=== PATIENT | male | born 1945 | race Caucasian/White ===

== ENCOUNTER 2016-11-21 05:53 | Inpatient (IN) | payer OTHER ==
[2016-10-31 13:26] VITALS: BMI 29.0
--- NOTE | 2016-10-31 14:04 | PAT Medication Instructions ---
Service Date Oct 31, 2016. Current Home Medication List Albuterol Hfa (Ventolin Hfa), Unknown Dose INH PRN PRN for ASTHMA Aspirin (Aspirin Chewable), 81 MG PO QAM Aspirin (Aspirin), 500 MG PO HS PRN for Pain Metoprolol Succ (Toprol Xl) (Toprol-Xl), 25 MG PO QAM Rosuvastatin Calcium (Rosuvastatin Calcium), 1 TAB PO QAM Medication Instructions For Your Scheduled Surgery - Check with surgeon/meal miller for instructions: Aspirin (Aspirin Chewable), 81 MG PO QAM Aspirin (Aspirin), 500 MG PO HS PRN for Pain - Take the following medications the morning of surgery with a sip of water: Rosuvastatin Calcium (Rosuvastatin Calcium), 1 TAB PO QAM Metoprolol Succ (Toprol Xl) (Toprol-Xl), 25 MG PO QAM Albuterol Hfa (Ventolin Hfa), Unknown Dose INH PRN PRN for ASTHMA (bring with you to hospital morning of surgery) - Take the following medications as scheduled the night before surgery: Albuterol Hfa (Ventolin Hfa), Unknown Dose INH PRN PRN for ASTHMA If you have any questions please call us at [phone] (Dania Campbell PA-C) or [phone] or [phone]
[2016-10-31 14:40] LABS: BASO % 0.5 %; BASO ABS # 0.05 K/uL (0-0.2); COMPLETE YES; EOS % 4.4 %; HEMATOCRIT 47.2 % (42-52); IG% 0.1 %; LYMPH % 30.3 %; LYMPH ABS # 3.28 K/uL (1.2-3.4); MEAN CELL VOLUME 91.8 fL (80-100); MEAN CORPUSCULAR HEMOGLOBIN 30.7 pg (25-34); MEAN CORPUSCULAR HGB CONC 33.5 g/dl (32-36); MEAN PLATELET VOLUME 10.4 fL (7.4-10.4); MONO % 11.7 %; PLATELET COUNT 234 K/uL (130-400); RED BLOOD COUNT 5.14 M/uL (4.7-6.1); WHITE BLOOD COUNT 10.81 K/uL (4.8-10.8)
[2016-10-31 14:55] LABS: URINE APPEARANCE CLEAR (CLEAR); URINE BILIRUBIN NEG (NEG); URINE COLOR YELLOW; URINE NITRITE NEG (NEG); URINE PH 5.5 (4.5-7.5); UROBILINOGEN NEG (NEG)
[2016-10-31 15:01] LABS: BUN/CREATININE RATIO 15.9 (10-20); CALCIUM 8.9 mg/dl (8.5-10.1); CREATININE 0.79 mg/dl (0.60-1.40); POTASSIUM 4.2 mmol/L (3.5-5.1)
[2016-10-31 15:12] LABS: MANUAL MICROSCOPIC REQUIRED? NO; REVIEW REQ? NO
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
[2016-11-21] VITALS (13 sets, daily range): BP systolic 101–125; BP diastolic 55–75; PULSE 56–75; TEMP 36.3–37; O2SAT 95–98; Ht 165.1 cm; Wt 83.5 kg
[~2016-11-21] VITALS: Ht 165.1 cm; Wt 83.5 kg
[~2016-11-21 05:53] MED LIST: ASPCH81X PO; ASPI325T45 PO; METO25TA3 PO; ROSU20TA22 PO; VNTHFA/IN INH
[2016-11-21] MEDS ORDERED: CEFAZOLIN 2000 MG/60 ML D5W 60 ML IV SCH (06:00)
[2016-11-21] MEDS ORDERED: LACTATED RINGER'S 1000ML 1,000 ML IV SCH (06:00)
[2016-11-21] MEDS ORDERED: NTRGSL/4 UT (06:13)
[2016-11-21] MEDS ORDERED: ADVIN25/60 INH (06:14)
[2016-11-21] MEDS ORDERED: MIDAZOLAM HCL 1 MG/ML 2ML VIAL ONE (06:45)
[2016-11-21] MEDS ORDERED: FENTANYL CITRATE INJ 50 MCG/1 ML 2 ML VIAL ONE ×3 (06:45→08:01)
[2016-11-21] MEDS ORDERED: BACITRACIN 50000 UNIT VIAL ONE (07:04)
[2016-11-21] MEDS ORDERED: SODIUM CHLORIDE 0.9% PF 50 ML VIAL ONE (07:04)
--- NOTE | 2016-11-21 07:12 | History & Physical Bridge Note ---
H&P Re-Evaluation Bridge Note: I have examined the patient, reviewed the History & Physical and in the interval since the performance of the History & Physical I have noted the following changes of clinical significance: No changes noted
[2016-11-21] MEDS ORDERED: ONDANSETRON INJ 2 MG/ML 2 ML VIAL IV PRN ×2 (07:45→08:45)
[2016-11-21] MEDS ORDERED: HYDROmorphone INJ 2 MG/ML SYR/VIAL IV PRN (07:45)
[2016-11-21] MEDS ORDERED: ATROPINE SULFATE 0.1 MG/ML 5ML SYR IV PRN (07:45)
[2016-11-21] MEDS ORDERED: LABETALOL HCL IV 5 MG/ML 20ML IV PRN (07:45)
[2016-11-21] MEDS ORDERED: HYDROmorphone INJ 2 MG/ML SYR/VIAL ONE ×2 (07:52→09:14)
[2016-11-21] MEDS ORDERED: FLOSEAL HEMOSTATIC MATRIX 5ML TOP ONE (08:11)
[2016-11-21] MEDS ORDERED: ROCURONIUM BROMIDE 10 MG/ML 5 ML VIAL ONE (08:12)
[2016-11-21] MEDS ORDERED: ONDANSETRON INJ 2 MG/ML 2 ML VIAL ONE ×2 (08:12→11:40)
[2016-11-21] MEDS ORDERED: DEXAMETHASONE SOD INJ 4 MG/ML VIAL ONE (08:12)
[2016-11-21] MEDS ORDERED: LIDOCAINE HCL 2% 2 ML VIAL (20MG/ML) ONE (08:12)
[2016-11-21] MEDS ORDERED: PROPOFOL IV EMULSION 10 MG/ML 20 ML VIAL IV ONE (08:12)
--- NOTE | 2016-11-21 08:43 | [facility] Post Operative Brief Note ---
Immediate Operative Summary Operative Date Nov 21, 2016. Pre-Operative Diagnosis Spinal Stenosis Post-Operative Diagnosis same as pre-operative Procedure(s) Performed C3-C4 Anterior Cervical Discectomy and Fusion, Placement of Prosthetic Spacer/ Allograft Anterior Plate and Screw Fixation with use of Nikole Surgeon Dr. Dom Rutledge Wallboard Worker Surgeon(s) Bernie Li PA-C Estimated Blood Loss 10ml Findings stenosis Specimens none
[2016-11-21] MEDS ORDERED: DEXAMETHASONE INJ 8 MG in SYRINGE 0 ML IV PRN (08:45)
[2016-11-21] MEDS ORDERED: NITROGLYCERIN 0.4 MG SL PER TAB CHARGE UT PRN (08:45)
[2016-11-21] MEDS ORDERED: DO NOT ADMINISTER PNEUMOCOCCAL VACCINE PRN ×2 (08:45)
[2016-11-21] MEDS ORDERED: ACETAMINOPHEN IV 100 ML IV PRN (08:45)
[2016-11-21] MEDS ORDERED: NALOXONE HCL 0.4 MG/1 ML VIAL/CARP IV PRN (08:45)
[2016-11-21] MEDS ORDERED: FLUTICASONE/SALMETEROL 250/50 (ADVAIR) 14 PUFF/1 INHALER INH PRN (08:45)
[2016-11-21] MEDS ORDERED: MAGNESIUM HYDROXIDE SUSP 30 ML UDC PO PRN (08:45)
[2016-11-21] MEDS ORDERED: LORAZEPAM INJ 0.5 MG in SYRINGE 0.75 ML IV PRN (08:45)
[2016-11-21] MEDS ORDERED: RACEPINEPHRINE 2.25% NEBU SOLN 0.5 ML VIAL INH PRN (08:45)
[2016-11-21] MEDS ORDERED: DiphenhydrAMINE HCL 50 MG/ML VIAL IV PRN (08:45)
[2016-11-21] MEDS ORDERED: DO NOT ADMINISTER FLU VACCINE PRN ×3 (08:45)
[2016-11-21] MEDS ORDERED: LORAZEPAM 0.5 MG TAB PO PRN (08:45)
[2016-11-21] MEDS ORDERED: HYDROmorphone INJ 0.5 MG/0.5 ML SYR IV PRN (08:45)
[2016-11-21] MEDS ORDERED: METOPROLOL SUCC 25MG EXT REL TAB PO SCH (09:00)
[2016-11-21] MEDS: ROSUVASTATIN CALCIUM 20 MG TAB PO SCH (09:00)
[2016-11-21] MEDS ORDERED: DOCUSATE SODIUM 100 MG CAP PO SCH (09:00)
--- NOTE | 2016-11-21 09:10 | OPERATIVE REPORT ---
DATE OF OPERATION: 11/21/2016 PREOPERATIVE DIAGNOSES: Cervical spondylosis and myeloradiculopathy, C3-C4. POSTOPERATIVE DIAGNOSES: Same. PROCEDURES PERFORMED: 1. Anterior cervical diskectomy and bilateral foraminotomy, C3-C4. 2. Anterior cervical arthrodesis, C3-C4. 3. Placement of Globus PEEK cage 8 mm in height at C3-C4. 4. Placement Nikole bone grafting in the interbody spacer. SURGEON: Dr. Dom Rutledge. BILINGUAL OFFICE ASSISTANT: Bernie Altamirano PA-C. Due to the complex nature of the procedure, the entire surgery was performed with the bus assistant of Bernie Altamirano PA-C. The assistant research scientist, under direct supervision, was involved in the actual performance of all aspects of the surgical procedure including hemostasis, tissue retraction and incision, instrument management, patient positioning, and wound closure. ANESTHESIA: General. DISPOSITION: The patient awakened and taken to PACU in stable condition. HISTORY OF PATIENT'S PROBLEMS: A 73-year-old male who presents with above-mentioned diagnoses. After failing an extensive course of nonoperative care, he elected to undergo the above-mentioned procedures. Risks, benefits, pros, cons, and alternatives were outlined in detail preoperatively. DESCRIPTION OF PROCEDURE: The patient was met with preoperatively, the case discussed and all questions were addressed. At that point, the patient was taken back to the operative suite and after undergoing successful general intubation via department of anesthesia, he was placed in supine position on Joshua table with head in Ace director of head start. All bony prominences were well padded and the eyes were inspected to ensure there was no external pressure placed upon them. At this point, anterior cervical spine was prepped and draped in normal sterile fashion. With assistance of fluoroscopy, we identified the C3-C4 disk space and transverse incision was placed along the right anterior aspect of the cervical spine overlying this region. Sharp dissection with the assistance of bipolar electrocautery was performed down to and exposing anterior cervical spine at C3-C4. A self-retaining retractor was placed. I then performed a complete diskectomy of C3-C4 out to the uncovertebral joints bilaterally. This did include removal of all posterior annular fibers and longitudinal ligament for complete decompression. Endplates were then burred to subcortical bleeding bone and 8-mm PEEK Prevail cage filled with Nikole bone grafting tapped into position. This was then screwed into place with fluoroscopic guidance. The incision was then copiously irrigated and explored to ensure there was no damage to surrounding structures or remaining bleeding. A 10 round PAIGE drain inserted and then closed with 1-0 Vicryl in the fascia, 2-0 Vicryl subcutaneously, and 4-0 Monocryl for final skin closure. Steri-Strips and sterile dressing placed. The patient was awakened and taken to PACU in stable condition. I attest to the content of the Intraoperative Record and any orders documented therein. Any exceptio ns are noted below.
--- NOTE | 2016-11-21 09:26 | DIAGNOSTIC IMAGING REPORT ---
CERVICAL 2 OR 3 VIEWS CLINICAL HISTORY: C3-C4 ACDF COMPARISON STUDY: Cervical spine fluoroscopic images November 14, 2009. Fluoroscopy time: 7 seconds. FINDINGS: 2 fluoroscopic images demonstrate a C3-C4 anterior discectomy and fusion. A previous corpectomy and multilevel anterior cervical spine fusion is also noted. IMPRESSION: Findings consistent with a C3-C4 anterior discectomy and fusion. Electronically signed by: Rudolph Patton M.D. 11/21/2016 9:25 AM Dictated Date/Time: 11/21/2016 9:21 AM
--- NOTE | 2016-11-21 10:01 | Anesthesiology Progress Note ---
Anesthesia Post Op Note Date & Time Nov 21, 2016 at 10:00 Vital Signs Pain Intensity: 4 Vital Signs Past 12 Hours Date Time Temp Pulse Resp B/P Pulse Ox O2 Delivery O2 Flow Rate FiO2 11/21/16 09:50 60 12 131/75 94 Nasal Cannula 3 11/21/16 09:40 60 16 139/69 95 Nasal Cannula 3 11/21/16 09:30 79 16 148/77 94 Nasal Cannula 3 11/21/16 09:20 71 16 154/79 95 Nasal Cannula 3 11/21/16 09:10 77 16 161/90 93 Nasal Cannula 3 11/21/16 09:00 78 16 150/83 96 Mask 10 11/21/16 08:50 36 79 16 154/77 98 Mask 10 11/21/16 06:05 36.4 57 20 121/69 95 Room Air Notes Mental Status: alert / awake / arousable, participated in evaluation Pt Amnestic to Procedure: Yes Nausea / Vomiting: adequately controlled Pain: adequately controlled Airway Patency, RR, SpO2: stable & adequate BP & HR: stable & adequate Hydration State: stable & adequate Anesthetic Complications: no major complications apparent
[2016-11-21] MEDS ORDERED: NEOSTIGMINE METHYLSULFATE 1 MG/ML 10ML VIAL ONE (11:40)
[2016-11-21] MEDS ORDERED: GLYCOPYRROLATE INJ 0.2 MG/ML VIAL ONE (11:40)
[2016-11-21] MEDS: SODIUM CHLORIDE 0.9% 1000ML 1,000 ML IV SCH (16:15)
[2016-11-21] MEDS ORDERED: SCOPOLAMINE 1.5 MG TDSY TD SCH (17:00)
[2016-11-21] MEDS: DEXAMETHASONE INJ 6 MG in SYRINGE 0 ML IV SCH (18:05)
[2016-11-21] MEDS: CEFAZOLIN IV 2,000 MG in DEXTROSE 5% 50ML 50 ML IV SCH (18:05)
[2016-11-21] MEDS: OXYCODONE HCL IR 5 MG TAB (IMMEDIATE RELEASE) PO PRN ×2 (19:21→23:42)
[2016-11-21] MEDS: DOCUSATE SODIUM 100 MG CAP PO SCH (20:30)
[2016-11-21] MEDS: CHECK SCOPOLAMINE PATCH PLACEMENT SCH (23:42)
[2016-11-22] VITALS (20 sets, daily range): BP systolic 99–129; BP diastolic 56–75; PULSE 51–78; TEMP 36.5–37.1; O2SAT 91–95
[2016-11-22] MEDS: DEXAMETHASONE INJ 6 MG in SYRINGE 0 ML IV SCH ×2 (00:32→08:31)
[2016-11-22] MEDS: CEFAZOLIN IV 2,000 MG in DEXTROSE 5% 50ML 50 ML IV SCH ×2 (00:38→08:40)
[2016-11-22] MEDS: SODIUM CHLORIDE 0.9% 1000ML 1,000 ML IV SCH (04:52)
[2016-11-22] MEDS ORDERED: RXC5 PO (08:16)
--- NOTE | 2016-11-22 08:17 | Discharge Instructions ---
Discharge Instructions Date of Service Nov 22, 2016. Admission Reason for Admission: Spinal Stenosis Discharge Discharge Diagnosis / Problem: stenosis Discharge Goals Goal(s): Improve function Activity Recommendations Activity Limitations: per Instructions/Follow-up section . Instructions / Follow-Up Instructions / Follow-Up ACTIVITY RECOMMENDATIONS: SELF CARE INSTRUCTIONS AFTER CERVICAL FUSIONS 1. No smoking. Smoking drastically decreases the chance of a solid fusion. 2. No bending, lifting more than 5 pounds, or twisting (roll like a log when turning in bed). 3. You may shower 3 days after surgery. Thoroughly dry wound. Do not soak in the tub. 4. Cervical collar: Must be worn at all times including sleeping. You may remove the brace only to bath, eat and if you are sitting in a recliner. 5. Please walk as much as you can for exercise. Gradually increase the distance that you walk as your endurance increases. SPECIAL CARE INSTRUCTIONS: VERY IMPORTANT TO READ AND REVIEW A. Do not take any anti-inflammatory medications (i.e. Indocin, Advil, Aspirin, Naprosyn, Aleve, Motrin, etc.) as these may inhibit the chance of a solid fusion. Tylenol is okay to take. B. Your surgical incision has been closed with a cosmetic suture under the skin that will dissolve in about 6 weeks. In 14 days, you can use a pair of clean scissors and cut the suture that is left outside of the skin at the ends of your incision. C. Complications are uncommon, but please contact us if you have any signs or symptoms of: 1. wound infection (fever higher than 102.5 degrees F, redness, separation of wound, drainage, or increasing pain from the incision) 2. blood clots in legs (pain, swelling, redness and warmth in legs) 3. urinary tract infection (fever higher than 102.5 degrees, burning upon urination or increased frequency of urination) 4. nerve problems (inability to walk on your toes or heels, numbness, loss of bowel or bladder control) 5. any other symptoms that concern you. D. Please call the office at if you have any concerns or questions about your operation or recovery. MANAGING PAIN AFTER SPINAL SURGERY 1. Narcotic medication is intended for short-term use and will be provided for surgical pain. Surgical pain usually lasts for a period of 4-6 weeks. Narcotic medication includes Percocet, Vicodin, Darvocet, Tylenol #3 or Lortab. 2. Longer-term pain is more appropriately treated with non-narcotic medication such as Tylenol ES. 3. Muscle spasm is not appropriately treated with narcotics. Muscle relaxers such as Soma, Flexeril or Skelaxin can be used along with Tylenol ES. 4. Remember that we all live with some "aches and pains". This is not unusual or uncommon after an injury or as we get older. 5. We will provide appropriate medication within the normal guidelines of their prescribed use. We will also be very cautious and aware of potential abuse and extended duration of patients' medication needs. 6. Please allow 2-3 days to process refills. Prescriptions will not be mailed but must be picked up at the office. FOLLOW UP VISIT: Keep your scheduled follow-up appointment. Any questions, please call the office at . Current Hospital Diet Patient's current hospital diet: Regular Diet Discharge Diet Recommended Diet: Regular Diet Procedures Procedures Performed: C3-C4 Anterior Cervical Discectomy and Fusion, Placement of Prosthetic Spacer/ Allograft Anterior Plate and Screw Fixation with use of Nikole Pending Studies Studies pending at discharge: no Medical Emergencies . Who to Call and When: Medical Emergencies: If at any time you feel your situation is an emergency, please call 911 immediately. . Non-Emergent Contact Non-Emergency issues call your: Primary Care Provider . "Provider Documentation" section prepared by Dom Rutledge. VTE Core Measure Inpt VTE Proph given/why not?: Zeenat White, [facility]
--- NOTE | 2016-11-22 08:17 | Anesthesiology Progress Note ---
Anesthesia Post Op Note Date & Time Nov 22, 2016 at 08:17 Vital Signs Pain Intensity: 0.0 Vital Signs Past 12 Hours Date Time Temp Pulse Resp B/P Pulse Ox O2 Delivery O2 Flow Rate FiO2 11/22/16 07:55 52 14 91 Nasal Cannula 3.0 11/22/16 06:30 36.7 69 16 117/63 95 Nasal Cannula 3.0 Humidified Oxygen 11/22/16 04:30 36.8 75 16 119/75 94 Nasal Cannula 3.0 Humidified Oxygen 11/22/16 03:41 53 14 92 Nasal Cannula 3.0 11/22/16 02:30 36.7 53 16 106/66 94 Nasal Cannula 3.0 Humidified Oxygen 11/22/16 00:30 36.5 78 18 99/62 95 Nasal Cannula 3.0 Humidified Oxygen 11/21/16 23:46 63 14 96 Nasal Cannula 4.0 11/21/16 23:45 Nasal Cannula 3.0 Humidified Oxygen 11/21/16 23:24 36.6 59 14 116/67 96 Nasal Cannula 4.0 Humidified Air 11/21/16 22:32 36.7 56 18 101/65 96 Nasal Cannula 4.0 Humidified Oxygen 11/21/16 20:31 36.3 62 18 105/55 97 Nasal Cannula 4.0 62 Humidified Oxygen 11/21/16 20:27 71 14 96 Nasal Cannula 4.0 11/21/16 20:26 Nasal Cannula 4.0 Humidified Oxygen Notes Mental Status: alert / awake / arousable, participated in evaluation Pt Amnestic to Procedure: Yes Nausea / Vomiting: adequately controlled Pain: adequately controlled Airway Patency, RR, SpO2: stable & adequate BP & HR: stable & adequate Hydration State: stable & adequate Anesthetic Complications: no major complications apparent
[2016-11-22] MEDS: CHECK SCOPOLAMINE PATCH PLACEMENT SCH ×2 (08:31→15:16)
[2016-11-22] MEDS: DOCUSATE SODIUM 100 MG CAP PO SCH ×2 (08:32→20:58)
[2016-11-22] MEDS: ROSUVASTATIN CALCIUM 20 MG TAB PO SCH (08:32)
[2016-11-22] MEDS: METOPROLOL SUCC 25MG EXT REL TAB PO SCH (08:33)
--- NOTE | 2016-11-22 09:54 | DISCHARGE SUMMARY ---
PRINCIPAL DIAGNOSIS: Cervical spondylosis, myeloradiculopathy. HOSPITAL COURSE FOLLOWS: On 11/21/2016 patient underwent anterior cervical discectomy and fusion C3-C4, tolerated this well and taken to orthopedic floor postoperatively. Postop day #1 he was up and ambulatory, swallowing well, no hoarseness. Arm symptoms improved. Subsequently discharged home. Discharge orders and instructions found on the chart for further review.
[2016-11-22] MEDS ORDERED: NICOTINE 21 MG/24 HR TDSY TD ONE (14:51)
[2016-11-22] MEDS ORDERED: PHARMACIST DISCHARGE MED REC CONSULT PRN (15:00)
[2016-11-22 16:00] LABS: HEMATOCRIT 42.4 % (42-52); MEAN CELL VOLUME 92.6 fL (80-100); MEAN CORPUSCULAR HEMOGLOBIN 31.7 pg (25-34); MEAN CORPUSCULAR HGB CONC 34.2 g/dl (32-36); MEAN PLATELET VOLUME 11.1 fL (7.4-10.4); PLATELET COUNT 210 K/uL (130-400); RED BLOOD COUNT 4.58 M/uL (4.7-6.1); WHITE BLOOD COUNT 23.53 K/uL (4.8-10.8)
[2016-11-22] MEDS ORDERED: ASPIRIN 81 MG ECTAB PO ONE (16:00)
[2016-11-22 16:04] LABS: PROTHROMBIN TIME (PATIENT) 10.9 SECONDS (9.0-12.0)
[2016-11-22 16:46] LABS: BASO ABS # 0.01 K/uL (0-0.2); COMPLETE YES; IG% 0.3 %; LYMPH % 4.9 %; LYMPH ABS # 1.15 K/uL (1.2-3.4); MONO % 4.5 %; NEUT % 90.3 %
[2016-11-22 17:45] LABS: BUN/CREATININE RATIO 27.4 (10-20); CALCIUM 8.8 mg/dl (8.5-10.1); CREATININE 0.82 mg/dl (0.60-1.40); MAGNESIUM 2.2 mg/dl (1.8-2.4); POTASSIUM 4.3 mmol/L (3.5-5.1)
--- NOTE | 2016-11-22 23:09 | Medical Consult ---
Consultation Date of Consultation: Nov 22, 2016. Attending Physician: Dom Rutledge D.O. Reason for Consultation: Facial droop History of Present Illness This pt is a 71 yo male with a h/o hyperlipidemia, HTN, longtime smoker, and cervical spine stenosis, admitted for C3-4 anterior discectomy and fusion yesterday who was getting ready to be discharged today and his noted that he had a left-sided facial droop. The reports that the nurse in the PACU questioned her about it yesterday; the thinks it does look better today than yesterday but still not normal for him. I was consulted to further evaluate his condition. The patient denies any numbness or tingling or weakness anywhere. He denies visual changes except he did have a brief few seconds of black spots in his left field of vision about 3 or 4 days ago. He denies change in taste or difficulty with swallowing. He denies headache. He has some mild postoperative neck pain. He denies chest pains, palpitations, or shortness of breath. He otherwise feels fine. 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) Allergies Coded Allergies: No Known Allergies (Verified , 11/21/16) Home Medications Reported Home Medications Medications Dose Route/Sig Max Daily Dose Days Date Category Oxycodone HCl 5 Mg Tab 5-10 Mg PO Q4H PRN 30 11/22/16 Rx Advair Diskus 250/50 60 Dose (Fluticasone Prop/Salmeterol) 1 Ea Aerp 1 Puffs INH BID PRN 90 11/21/16 Reported Nitrostat (Nitroglycerin) 0.4 Mg Tab 0.4 Mg UT PRN 11/21/16 Reported Aspirin 325 Mg Tab 500 Mg PO HS PRN 10/31/16 Reported Toprol-Xl (Metoprolol Succinate) 25 Mg Tabcr 25 Mg PO QAM 10/31/16 Reported Rosuvastatin Calcium 20 Mg Tab 1 Tab PO QAM 10/31/16 Reported Ventolin Hfa (Albuterol) Unknown Strength Aers Unknown Dose INH PRN PRN 10/31/16 Reported Aspirin Chewable (Aspirin) 81 Mg Chew 81 Mg PO QAM 10/31/16 Reported Current Inpatient Medications Current Inpatient Medications Medications (Trade) Dose Ordered Sig/Octaviano Route Start Time Stop Time Status Last Admin Dose Admin Racepinephrine 0.5 ml 0.5 ml ONE PRN INH 11/21/16 08:45 Acetaminophen (Ofirmev Iv) 100 ml @ 400 mls/hr Q8H PRN IV 11/21/16 08:45 12/21/16 08:44 Hydromorphone HCl (Dilaudid Inj) 0.5mg IV for moder... Q3H PRN IV 11/21/16 08:45 12/05/16 08:44 Magnesium Hydroxide (Milk Of Magnesia Susp) 30 ml DAILY PRN PO 11/21/16 08:45 12/21/16 08:44 Ondansetron HCl (Zofran Inj) 4 mg Q6 PRN IV 11/21/16 08:45 12/21/16 08:44 Scopolamine (Transderm-Scop Patch) 1.5 mg Q3D TD 11/21/16 17:00 12/21/16 16:59 11/21/16 17:00 1.5 MG Lorazepam 0.5 mg 0.5 mg Q8H PRN PO 11/21/16 08:45 12/21/16 08:44 Lorazepam/Syringe (Ativan Inj/ Syringe) 1 ml @ 1 mls/min Q8H PRN IV 11/21/16 08:45 12/21/16 08:44 Diphenhydramine HCl (Benadryl Inj) 25 mg Q6H PRN IV 11/21/16 08:45 12/21/16 08:44 Pneumococcal Polysaccharide Vaccine 1 ea PRN PRN N/A 11/21/16 08:45 12/21/16 08:44 Influenza Virus Vacc Triv Types A&B 1 ea 1 ea PRN PRN N/A 11/21/16 08:45 12/21/16 08:44 Sodium Chloride (Nss 1000ml) 1,000 ml @ 80 mls/hr [id number] IV 11/21/16 16:15 11/22/16 16:14 11/22/16 04:52 80 MLS/HR Oxycodone HCl (Roxicodone Immediate Rel Tab) 5mg for pain scale 4-6 1... Q4H PRN PO 11/21/16 08:45 12/05/16 08:44 11/21/16 23:42 10 MG Polyethylene (Miralax Powder Packet) 17 gm DAILY PO 11/23/16 09:00 12/23/16 08:59 Bisacodyl (Dulcolax Tab) 5 mg DAILY PRN PO 11/23/16 06:00 12/23/16 05:59 Bisacodyl 10 mg 10 mg DAILY PRN CO 11/23/16 06:00 12/23/16 05:59 Dexamethasone Sodium Phosphate/ Syringe (Decadron Inj/ Syringe) 2 ml @ 1 mls/min ONE PRN IV 11/21/16 08:45 Naloxone HCl (Narcan Inj) 0.1 mg Q5M PRN IV 11/21/16 08:45 12/21/16 08:44 Miscellaneous (Remove Transderm-Scop Patch) 1 ea Q3D N/A 11/24/16 16:59 12/24/16 16:58 Miscellaneous Information (Check Scopolamine Patch Placement) 1 ea QS N/A 11/22/16 00:00 12/22/16 00:00 11/22/16 08:31 1 EA Salmeterol Xinafoate/ Fluticasone (Advair Diskus 250/50 Inh) 1 puff BID PRN INH 11/21/16 08:45 12/21/16 08:44 Nitroglycerin (Nitrostat Tab) 0.4 mg PRN PRN UT 11/21/16 08:45 12/21/16 08:44 Rosuvastatin Calcium (Crestor Tab) 20 mg QAM PO 11/21/16 09:00 12/21/16 08:59 11/22/16 08:32 20 MG Docusate Sodium (coLACE CAP) 100 mg BID PO 11/21/16 21:00 12/21/16 20:59 11/22/16 08:32 100 MG Metoprolol Succinate (Toprol Xl Tab) 25 mg QAM PO 11/22/16 09:00 12/22/16 08:59 11/22/16 08:33 25 MG Review of Systems Constitutional: No chills, No fatigue, No fever, No sweats Eyes: No diplopia, No eye pain, No worsening of vision ENT: No hearing loss, No trouble swallowing Respiratory: No shortness of breath Cardiovascular: No chest pain, No edema, No palpitations Abdomen: No nausea, No pain, No vomiting Musculoskeletal: No joint pain Genitourinary - Male: No problem reported Neurologic: No numbness/tingling, No paralysis, No vertigo, No weakness Psychiatric: No problem reported Endocrine: No problem reported Hematologic / Lymphatic: No problem reported Integumentary: No problem reported Allergic / Immunologic: No problem reported Physical Exam Date Time Temp Pulse Resp B/P Pulse Ox O2 Delivery O2 Flow Rate FiO2 11/22/16 13:14 37.1 66 14 92 Room Air 11/22/16 12:30 Room Air 11/22/16 12:30 37.1 66 14 129/67 92 Room Air 11/22/16 11:29 54 14 92 Room Air 11/22/16 11:00 95 Room Air 11/22/16 10:30 36.8 67 16 113/64 95 Nasal Cannula 3.0 Humidified Oxygen 11/22/16 08:30 36.9 68 16 108/63 94 Nasal Cannula 3.0 Humidified Oxygen 11/22/16 07:55 52 14 91 Nasal Cannula 3.0 11/22/16 06:30 36.7 69 16 117/63 95 Nasal Cannula 3.0 Humidified Oxygen 11/22/16 04:30 36.8 75 16 119/75 94 Nasal Cannula 3.0 Humidified Oxygen 11/22/16 03:41 53 14 92 Nasal Cannula 3.0 11/22/16 02:30 36.7 53 16 106/66 94 Nasal Cannula 3.0 Humidified Oxygen 11/22/16 00:30 36.5 78 18 99/62 95 Nasal Cannula 3.0 Humidified Oxygen 11/21/16 23:46 63 14 96 Nasal Cannula 4.0 11/21/16 23:45 Nasal Cannula 3.0 Humidified Oxygen 11/21/16 23:24 36.6 59 14 116/67 96 Nasal Cannula 4.0 Humidified Air 11/21/16 22:32 36.7 56 18 101/65 96 Nasal Cannula 4.0 Humidified Oxygen 11/21/16 20:31 36.3 62 18 105/55 97 Nasal Cannula 4.0 62 Humidified Oxygen 11/21/16 20:27 71 14 96 Nasal Cannula 4.0 11/21/16 20:26 Nasal Cannula 4.0 Humidified Oxygen 11/21/16 18:30 37.0 63 16 119/72 96 Nasal Cannula 4.0 Humidified Oxygen 11/21/16 18:25 36.7 64 18 116/65 96 Nasal Cannula 4.0 Humidified Oxygen 11/21/16 17:23 36.7 57 16 113/73 95 Nasal Cannula Humidified Oxygen 11/21/16 16:30 36.8 56 16 107/60 97 Nasal Cannula 4.0 Humidified Oxygen 11/21/16 16:30 75 14 97 Nasal Cannula 4.0 11/21/16 16:00 36.3 66 18 105/62 96 Nasal Cannula 4.0 Humidified Oxygen 11/21/16 16:00 36.3 66 18 105/62 96 Nasal Cannula 4.0 Humidified Oxygen 11/21/16 15:30 36.7 60 18 125/75 98 Nasal Cannula 4.0 Humidified Oxygen 11/21/16 15:25 98 Nasal Cannula 4.0 Humidified Oxygen 11/21/16 15:25 98 Nasal Cannula 4.0 11/21/16 15:15 36.9 57 18 108/60 93 Nasal Cannula 4 General Appearance: WD/WN, no apparent distress Head: normocephalic, atraumatic Eyes: normal inspection, PERRL, EOMI, sclerae normal ENT: hearing grossly normal, pharynx normal Neck: trachea midline, + pertinent finding (neck brace in place, after neck brace removed, dressing intact over anterior neck is clean dry and intact) Respiratory/Chest: lungs clear, normal breath sounds, no respiratory distress, no accessory muscle use Cardiovascular: no edema, no gallop, no JVD, no murmur, normal peripheral pulses, + bradycardia (with regular rhythm) Abdomen/GI: normal bowel sounds, non tender, soft, no organomegaly, no pulsatile mass ( ) Back: normal inspection Extremities/Musculoskelatal: normal inspection, no calf tenderness, no pedal edema Neurologic/Psych: public address announcer II-XII nml as tested (except there is notable drooping of the corner of the left side of the mouth, however no weakness in the rest of the facial muscles, tongue protrudes to the right on exam), no motor/sensory deficits, alert, normal mood/affect, normal reflexes (1+ throughout upper extremities and 2+ in bilateral lower extremities), oriented x 3, + pertinent finding (negative Romberg, normal rapid alternating hands, normal finger to nose bilaterally, normal [id number], normal gait, negative pronator drift) Skin: normal color, warm/dry, no rash Assessment & Plan This pt is a 71 yo male with a h/o hyperlipidemia, HTN, longtime smoker, COPD, and cervical spine stenosis, admitted for C3-4 anterior discectomy and fusion, with seemingly new onset left sided facial droop postoperatively. 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 He does have risk factors for CVA of smoking, hyperlipidemia, and hypertension. I discussed the case with neurology and cardiology on the phone. ECG is sinus bradycardia. Laboratory values today are normal including negative troponin, with the exception of a leukocytosis of 23,000 which is likely due to preoperative dexamethasone. -Transferred to telemetry for cardiac arrhythmia monitoring -Check echocardiogram - Trend cardiac biomarkers -Consult to neurology and cardiology are appreciated -Neuro checks -PT/OT/speech therapy evaluations -Check MRI of the brain as well as MRA of the head and neck -Restart his home aspirin 81 mg which I did discuss with Dr. Rutledge Hyperlipidemia, hypertension-stable at this time -Continue home metoprolol and Crestor -Continue aspirin 81 mg daily COPD-stable -Continue home Advair Current smoker-encouraged cessation of smoking -Nicotine patch as needed Cervical spine stenosis status post ACDF [id number] -Postoperative management as per primary orthopedic surgeon team DVT prophylaxis-SCDs Disposition to home after workup for CVA was completed and he is medically stable Additional Copies To Alex La M.D. (FORDS)
[2016-11-23 00:15] LABS: CKMB/CK RATIO 1.4 (0-3.0)
[2016-11-23] MEDS ORDERED: GADAVIST IV PRN (02:15)
[2016-11-23 03:13] VITALS: PULSE 54; O2SAT 92
[2016-11-23 04:00] VITALS: BP 116/62; PULSE 68; TEMP 36.8; O2SAT 96
[2016-11-23 04:24] VITALS: BP 116/62; PULSE 68; TEMP 36.8; O2SAT 96
[2016-11-23 04:50] LABS: BASO % 0.1 %; BASO ABS # 0.01 K/uL (0-0.2); COMPLETE YES; HEMATOCRIT 38.1 % (42-52); IG% 0.3 %; LYMPH % 10.9 %; LYMPH ABS # 1.91 K/uL (1.2-3.4); MEAN CELL VOLUME 90.5 fL (80-100); MEAN CORPUSCULAR HEMOGLOBIN 30.9 pg (25-34); MEAN CORPUSCULAR HGB CONC 34.1 g/dl (32-36); MEAN PLATELET VOLUME 10.2 fL (7.4-10.4); MONO % 7.9 %; NEUT % 80.8 %; PLATELET COUNT 190 K/uL (130-400); RED BLOOD COUNT 4.21 M/uL (4.7-6.1)
[2016-11-23 05:10] LABS: BLOOD UREA NITROGEN 19 mg/dl (7-18); BUN/CREATININE RATIO 20.8 (10-20); CALCIUM 8.5 mg/dl (8.5-10.1); CARBON DIOXIDE 30 mmol/L (21-32); CHLORIDE 109 mmol/L (98-107); CREATININE 0.93 mg/dl (0.60-1.40); GLUCOSE 112 mg/dl (70-99); POTASSIUM 3.8 mmol/L (3.5-5.1); SODIUM 145 mmol/L (136-145)
[2016-11-23 05:15] LABS: CHOLESTEROL 129 mg/dl (0-200); CHOLESTEROL/HDL RATIO 2.4; CKMB/CK RATIO 1.4 (0-3.0); HDL CHOLESTEROL 53 mg/dl; LDL CHOLESTEROL CALCULATED 54 mg/dl; TRIGLYCERIDES 109 mg/dl (0-150); VERY LOW DENSITY LIPOPROT CALC 22 mg/dl
[2016-11-23 05:52] LABS: ESTIMATED AVERAGE GLUCOSE 128 mg/dl; HA1C FLAG Normal (Normal)
[2016-11-23] MEDS ORDERED: BISACODYL 5 MG TABEC PO PRN (06:00)
[2016-11-23] MEDS ORDERED: BISACODYL 10 MG SUPP PR PRN (06:00)
--- NOTE | 2016-11-23 07:00 | DIAGNOSTIC IMAGING REPORT ---
Brain MRA HISTORY: Mental status change r/o dissection/stenosis TECHNIQUE: 3-D [id number] MRA of the brain was performed without contrast. COMPARISON STUDY: None. FINDINGS: Visualized intracranial internal carotid arteries, distal vertebral arteries, and basilar artery are widely patent. There is no significant stenosis, occlusion, or aneurysm seen within the bilateral ACAs, MCAs, or formula mixer. IMPRESSION: No significant stenosis, occlusion, or aneurysm within the [place]. Electronically signed by: Hua Hoyt M.D. 11/23/2016 6:59 AM Dictated Date/Time: 11/23/2016 6:58 AM
--- NOTE | 2016-11-23 07:01 | DIAGNOSTIC IMAGING REPORT ---
NECK MRA HISTORY: Mental status change r/o dissection/stenosis TECHNIQUE: [id number] and gadolinium-enhanced MRA of the neck was performed both before and after the intravenous administration of contrast. All measurements were calculated based on NASCET criteria. COMPARISON STUDY: None. FINDINGS: The aortic arch and proximal great vessels are widely patent. There is no significant stenosis, occlusion, or dissection identified within the bilateral common carotid, internal carotid, or vertebral arteries. IMPRESSION: No significant stenosis, occlusion, or dissection identified within the carotid or vertebral arteries. Electronically signed by: Hua Hoyt M.D. 11/23/2016 7:00 AM Dictated Date/Time: 11/23/2016 6:59 AM
--- NOTE | 2016-11-23 07:22 | DIAGNOSTIC IMAGING REPORT ---
MRI OF THE BRAIN COMBO CLINICAL HISTORY: Right facial droop. COMPARISON STUDY: No priors. TECHNIQUE: MRI of the brain was performed utilizing various T1 and T2-weighted sequences in the axial, sagittal, and coronal planes. Contrast-enhanced sequences were acquired following the administration of 8 cc of Gadavist. The examination is modestly degraded by motion artifact. FINDINGS: Brain parenchyma: There are age-related involutional changes noting minimal patchy subcortical and periventricular microangiopathic disease. There is no hemorrhage or mass effect. There is no restricted diffusion to suggest acute ischemia. No enhancing mass lesion is identified on the postcontrast images. Heath-white matter differentiation is preserved. No extra-axial fluid collection is seen. The cerebellar tonsils are normal in configuration. Ventricles, sulci, and cisterns: Prominent secondary to involutional change. Pituitary and sella: Unremarkable. Intracranial vasculature: Normal flow voids are maintained at the skull base. Orbits: The bony orbits are grossly intact. Orbital contents are normal in appearance. Sinuses and mastoids: Trace mucosal thickening is seen in the maxillary antra. The remaining paranasal sinuses and the mastoid air cells are clear. Calvarium: Unremarkable. Cervical cord: Partially visualized cervical spinal cord is normal in morphology and signal intensity. IMPRESSION: No acute intracranial abnormality. Electronically signed by: Yared Juares M.D. 11/23/2016 7:21 AM Dictated Date/Time: 11/23/2016 7:18 AM
[2016-11-23 07:25] VITALS: PULSE 56; O2SAT 94
[2016-11-23 08:00] VITALS: BP 117/68; PULSE 68; TEMP 36.8; O2SAT 96
[2016-11-23] MEDS: CHECK SCOPOLAMINE PATCH PLACEMENT SCH ×2 (08:00)
[2016-11-23 08:01] VITALS: BP 117/68; PULSE 68; TEMP 36.8; O2SAT 96
[2016-11-23] MEDS: DOCUSATE SODIUM 100 MG CAP PO SCH (08:55)
[2016-11-23] MEDS: ROSUVASTATIN CALCIUM 20 MG TAB PO SCH (08:55)
[2016-11-23] MEDS: METOPROLOL SUCC 25MG EXT REL TAB PO SCH (08:56)
[2016-11-23] MEDS ORDERED: NICOTINE 21 MG/24 HR TDSY TD SCH (09:00)
[2016-11-23] MEDS ORDERED: ASPIRIN 81 MG ECTAB PO SCH (09:00)
[2016-11-23] MEDS ORDERED: POLYETHYLENE (MIRALAX) 17 GM PACK PO SCH (09:00)
--- NOTE | 2016-11-23 09:26 | Medical Student: [facility] ---
Consultation Date of Consultation: Nov 23, 2016. History of Present Illness Rell Beyer is a 71 year old R-handed male with a history of cervical spinal stenosis, HTN, hyperlipidemia, COPD, and prostate cancer who had a C3/C4 anterior discectomy and fusion on 11/21/16. He was getting ready for discharge on 11/22 when his noticed drooping of his L lip. She is unsure if the drip started earlier as the pt was mostly sleeping the day of surgery. The pt is unaware of the droop and unsure when the drooping started. He denies any weakness, numbness, tingling, slurred speech, smell or taste changes, acute hearing changes, difficulty swallowing, balance problems, incontinence, or headache. He notes that he had some black floaters in his L eye 5-6 days ago, which went away after a few seconds. He has similar floaters periodically. He denies any blurred vision, double vision, or acute vision loss. His only complaint currently is mild neck pain from his surgery. Prior to the surgery he was experiencing localized posterior neck pain - no arm weakness or numbness. He had his first cervical fusion 7 years ago. He takes ASA 81 mg daily. Past Medical/Surgical History Medical History: HTN, hyperlipidemia, prostate cancer, cervical spinal stenosis, COPD. Pt denies any history of DM. Surgical History: prostatectomy, anterior cervical discectomy and fusion C3/C4 x 2, right tibia ORIF Family History Mother at age 62 from lung cancer Father in his early 70's from heart disease Pt denies any family history of stroke. 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) Review of Systems Constitutional: No fever Eyes: + see HPI ENT: No trouble swallowing Respiratory: No shortness of breath Cardiac: No chest pain, No palpitations Abdomen: + constipation, No nausea, No pain, No vomiting Musculoskeletal: + see HPI Neurologic: + see HPI All Other Systems: Reviewed and Negative Allergies Coded Allergies: No Known Allergies (Verified , 11/21/16) Medications Current Inpatient Medications Medications (Trade) Dose Ordered Sig/Octaviano Route Start Time Stop Time Status Last Admin Dose Admin Racepinephrine 0.5 ml 0.5 ml ONE PRN INH 11/21/16 08:45 Acetaminophen (Ofirmev Iv) 100 ml @ 400 mls/hr Q8H PRN IV 11/21/16 08:45 12/21/16 08:44 Hydromorphone HCl (Dilaudid Inj) 0.5mg IV for moder... Q3H PRN IV 11/21/16 08:45 12/05/16 08:44 Magnesium Hydroxide (Milk Of Magnesia Susp) 30 ml DAILY PRN PO 11/21/16 08:45 12/21/16 08:44 Ondansetron HCl (Zofran Inj) 4 mg Q6 PRN IV 11/21/16 08:45 12/21/16 08:44 Scopolamine (Transderm-Scop Patch) 1.5 mg Q3D TD 11/21/16 17:00 12/21/16 16:59 11/21/16 17:00 1.5 MG Lorazepam 0.5 mg 0.5 mg Q8H PRN PO 11/21/16 08:45 12/21/16 08:44 Lorazepam/Syringe (Ativan Inj/ Syringe) 1 ml @ 1 mls/min Q8H PRN IV 11/21/16 08:45 12/21/16 08:44 Diphenhydramine HCl (Benadryl Inj) 25 mg Q6H PRN IV 11/21/16 08:45 12/21/16 08:44 Pneumococcal Polysaccharide Vaccine 1 ea PRN PRN N/A 11/21/16 08:45 12/21/16 08:44 Influenza Virus Vacc Triv Types A&B 1 ea PRN PRN N/A 11/21/16 08:45 12/21/16 08:44 Oxycodone HCl (Roxicodone Immediate Rel Tab) 5mg for pain scale 4-6 1... Q4H PRN PO 11/21/16 08:45 12/05/16 08:44 11/21/16 23:42 10 MG Polyethylene (Miralax Powder Packet) 17 gm DAILY PO 11/23/16 09:00 12/23/16 08:59 Bisacodyl (Dulcolax Tab) 5 mg DAILY PRN PO 11/23/16 06:00 12/23/16 05:59 Bisacodyl 10 mg 10 mg DAILY PRN [place] 11/23/16 06:00 12/23/16 05:59 Dexamethasone Sodium Phosphate/ Syringe (Decadron Inj/ Syringe) 2 ml @ 1 mls/min ONE PRN IV 11/21/16 08:45 Naloxone HCl (Narcan Inj) 0.1 mg Q5M PRN IV 11/21/16 08:45 12/21/16 08:44 Miscellaneous (Remove Transderm-Scop Patch) 1 ea Q3D N/A 11/24/16 16:59 12/24/16 16:58 Miscellaneous Information (Check Scopolamine Patch Placement) 1 ea QS N/A 11/22/16 00:00 12/22/16 00:00 11/23/16 00:00 1 EA Salmeterol Xinafoate/ Fluticasone (Advair Diskus 250/50 Inh) 1 puff BID PRN INH 11/21/16 08:45 12/21/16 08:44 Nitroglycerin (Nitrostat Tab) 0.4 mg PRN PRN [place] 11/21/16 08:45 12/21/16 08:44 Rosuvastatin Calcium (Crestor Tab) 20 mg QAM PO 11/21/16 09:00 12/21/16 08:59 11/22/16 08:32 20 MG Docusate Sodium (coLACE CAP) 100 mg BID PO 11/21/16 21:00 12/21/16 20:59 11/22/16 20:58 100 MG Metoprolol Succinate (Toprol Xl Tab) 25 mg QAM PO 11/22/16 09:00 12/22/16 08:59 11/22/16 08:33 25 MG Nicotine (Nicoderm Cq 21MG Patch) 1 patch QAM TD 11/23/16 09:00 12/23/16 08:59 Miscellaneous (Remove Nicoderm Patch) 1 ea HS N/A 11/22/16 21:00 12/22/16 20:59 Miscellaneous Information (Pharmacist Discharge Med Rec Consult) 1 ea UD PRN N/A 11/22/16 15:00 12/22/16 14:59 Aspirin (Ecotrin Tab) 81 mg QAM PO 11/23/16 09:00 12/23/16 08:59 Gadobutrol (Gadavist) 8 mmol UD PRN IV 11/23/16 02:15 11/27/16 02:14 Physical Exam Date Time Temp Pulse Resp B/P Pulse Ox O2 Delivery O2 Flow Rate FiO2 11/23/16 08:01 36.8 68 18 117/68 96 11/23/16 07:25 56 14 94 Room Air 11/23/16 04:24 36.8 68 18 116/62 96 Room Air 3.0 11/23/16 04:00 Room Air 11/23/16 04:00 36.8 68 18 116/62 96 Room Air 11/23/16 03:13 54 14 92 Room Air 11/23/16 00:00 Room Air 11/22/16 23:10 53 14 94 Room Air 11/22/16 21:06 92 Room Air 11/22/16 21:00 51 16 93 Room Air 11/22/16 19:35 36.5 66 18 109/56 92 Room Air 11/22/16 19:18 60 14 93 Room Air 11/22/16 19:00 54 16 95 Room Air 11/22/16 17:00 55 18 92 Room Air 11/22/16 17:00 58 18 113/61 95 Room Air 11/22/16 15:24 36.7 62 18 123/63 93 Room Air 11/22/16 13:14 37.1 66 14 92 Room Air 11/22/16 12:30 Room Air 11/22/16 12:30 37.1 66 14 129/67 92 Room Air 11/22/16 11:29 54 14 92 Room Air 11/22/16 11:00 95 Room Air 11/22/16 10:30 36.8 67 16 113/64 95 Nasal Cannula 3.0 Humidified Oxygen General Appearance: WD/WN, no apparent distress Eyes: bilateral eyes EOMI, bilateral eyes PERRL, bilateral eyes normal inspection ENT: hearing grossly normal, pharynx normal, + pertinent finding (There is swelling of the lower L lip. ) Neck: + pertinent finding (Dressing in place over the anterior neck. ) Respiratory: no respiratory distress Musculoskeletal: normal strength (5/5 throughout), normal tone Neurologic/Psychiatric: alert, normal mood/affect, oriented x 3 Skin: normal color Neurologic exam: Spontaneous speech is of normal rate and tone and without dysarthria. Pt is able to repeat "No, ifs, ands, or buts" and "[place]." Recent and remote memory are intact, and fund of knowledge is appropriate. Strength of the intrinsic hand muscles, wrist extensors, wrist flexors, biceps, triceps, deltoids and trapezius muscles was 5 / 5 bilaterally, symmetrical. Strength of the hip flexors, quadriceps, hamstrings, ankle flexors, and ankle extensors 5 / 5 bilaterally, symmetrical. Triceps, biceps, and brachioradialis reflexes 2+ and symmetric. Patellar and Achilles reflexes 2+ and symmetric. Toe was down-going bilaterally on Babinski Reflex Testing. There was no dysmetria on [id number] testing. No tremor. There was no pronator drift. Romberg is negative. Pt is ambulatory with normal gait. Cranial nerves: I: Not tested II: PERRL with normal direct and consensual response. Visual major intact. III, IV, : EOMI. No nystagmus. V: Symmetric sensation over all 3 distributions of CN V. VII: Symmetrical wrinkling of the forehead, eye closure, and cheek expansion. There is drooping of the L lower lip at the area of the lip swelling, but the angle of the lips does elevate with smiling. VIII: Hearing symmetric. IX and X: uvula midline XI: trapezius and SCM strength is 5/5 and symmetric XII: tongue protrudes midline Laboratory Results Last 24 Hours Test 11/22/16 15:04 11/22/16 17:15 11/22/16 23:28 11/23/16 04:40 White Blood Count 23.53 K/uL 17.60 K/uL Red Blood Count 4.58 M/uL 4.21 M/uL Hemoglobin 14.5 g/dL 13.0 g/dL Hematocrit 42.4 % 38.1 % Mean Corpuscular Volume 92.6 fL 90.5 fL Mean Corpuscular Hemoglobin 31.7 pg 30.9 pg Mean Corpuscular Hemoglobin Concent 34.2 g/dl 34.1 g/dl Platelet Count 210 K/uL 190 K/uL Mean Platelet Volume 11.1 fL 10.2 fL Neutrophils (%) (Auto) 90.3 % 80.8 % Lymphocytes (%) (Auto) 4.9 % 10.9 % Monocytes (%) (Auto) 4.5 % 7.9 % Eosinophils (%) (Auto) 0.0 % 0.0 % Basophils (%) (Auto) 0.0 % 0.1 % Neutrophils # (Auto) 21.22 K/uL 14.24 K/uL Lymphocytes # (Auto) 1.15 K/uL 1.91 K/uL Monocytes # (Auto) 1.07 K/uL 1.39 K/uL Eosinophils # (Auto) 0.00 K/uL 0.00 K/uL Basophils # (Auto) 0.01 K/uL 0.01 K/uL RDW Standard Deviation 47.0 fL 45.9 fL RDW Coefficient of Variation 13.9 % 14.0 % Immature Granulocyte % (Auto) 0.3 % 0.3 % Immature Granulocyte # (Auto) 0.08 K/uL 0.05 K/uL Red Blood Cell Morphology Unremarkable Prothrombin Time 10.9 SECONDS Prothromb Time International Ratio 1.0 Activated Partial Thromboplast Time 26.3 SECONDS Partial Thromboplastin Ratio 1.0 Estimated Average Glucose 128 mg/dl Hemoglobin A1c 6.1 % Troponin I < 0.015 ng/ml < 0.015 ng/ml < 0.015 ng/ml Sodium Level 141 mmol/L 145 mmol/L Potassium Level 4.3 mmol/L 3.8 mmol/L Chloride Level 107 mmol/L 109 mmol/L Carbon Dioxide Level 28 mmol/L 30 mmol/L Anion Gap 6.0 mmol/L 6.0 mmol/L Blood Urea Nitrogen 23 mg/dl 19 mg/dl Creatinine 0.82 mg/dl 0.93 mg/dl Est Creatinine Clear Calc Drug Dose 81.7 ml/min 72.0 ml/min Estimated GFR () 103.8 96.1 Estimated GFR (Non- 89.6 82.9 BUN/Creatinine Ratio 27.4 20.8 Random Glucose 124 mg/dl 112 mg/dl Calcium Level 8.8 mg/dl 8.5 mg/dl Magnesium Level 2.2 mg/dl Total Creatine Kinase 249 U/L 217 U/L Creatine Kinase MB 3.4 ng/ml 3.1 ng/ml Creatine Kinase MB Ratio 1.4 1.4 Nucleated RBC Absolute Count (auto) 0.02 K/uL Nucleated Red Blood Cells % 0.1 % Triglycerides Level 109 mg/dl Cholesterol Level 129 mg/dl HDL Cholesterol 53 mg/dl LDL Cholesterol, Calculated 54 mg/dl VLDL Cholesterol, Calculated 22 mg/dl Cholesterol/HDL Ratio 2.4 NECK MRA HISTORY: Mental status change r/o dissection/stenosis TECHNIQUE: [id number] and gadolinium-enhanced MRA of the neck was performed both before and after the intravenous administration of contrast. All measurements were calculated based on NASCET criteria. COMPARISON STUDY: None. FINDINGS: The aortic arch and proximal great vessels are widely patent. There is no significant stenosis, occlusion, or dissection identified within the bilateral common carotid, internal carotid, or vertebral arteries. IMPRESSION: No significant stenosis, occlusion, or dissection identified within the carotid or vertebral arteries. Electronically signed by: Hua Hoyt M.D. 11/23/2016 7:00 AM Brain MRA HISTORY: Mental status change r/o dissection/stenosis TECHNIQUE: 3-D [id number] MRA of the brain was performed without contrast. COMPARISON STUDY: None. FINDINGS: Visualized intracranial internal carotid arteries, distal vertebral arteries, and basilar artery are widely patent. There is no significant stenosis, occlusion, or aneurysm seen within the bilateral ACAs, MCAs, or senior administrative support. IMPRESSION: No significant stenosis, occlusion, or aneurysm within the [place]. Electronically signed by: Hua Hoyt M.D. 11/23/2016 6:59 AM MRI OF THE BRAIN COMBO CLINICAL HISTORY: Right facial droop. COMPARISON STUDY: No priors. TECHNIQUE: MRI of the brain was performed utilizing various T1 and T2-weighted sequences in the axial, sagittal, and coronal planes. Contrast-enhanced sequences were acquired following the administration of 8 cc of Gadavist. The examination is modestly degraded by motion artifact. FINDINGS: Brain parenchyma: There are age-related involutional changes noting minimal patchy subcortical and periventricular microangiopathic disease. There is no hemorrhage or mass effect. There is no restricted diffusion to suggest acute ischemia. No enhancing mass lesion is identified on the postcontrast images. Heath-white matter differentiation is preserved. No extra-axial fluid collection is seen. The cerebellar tonsils are normal in configuration. Ventricles, sulci, and cisterns: Prominent secondary to involutional change. Pituitary and sella: Unremarkable. Intracranial vasculature: Normal flow voids are maintained at the skull base. Orbits: The bony orbits are grossly intact. Orbital contents are normal in appearance. Sinuses and mastoids: Trace mucosal thickening is seen in the maxillary antra. The remaining paranasal sinuses and the mastoid air cells are clear. Calvarium: Unremarkable. Cervical cord: Partially visualized cervical spinal cord is normal in morphology and signal intensity. IMPRESSION: No acute intracranial abnormality. Electronically signed by: Yared Juares M.D. 11/23/2016 7:21 AM Assessment & Plan ASSESSMENT: Rell Beyer is a 71 year old R-handed male with a history of cervical spinal stenosis, HTN, hyperlipidemia, COPD, and prostate cancer who had a C3/C4 anterior discectomy and fusion on 11/21/16 and was then noted to have possible drooping of his L lower face on 11/22/16. Neurologic exam shows swelling of the L lower lip and mild droop of the L lower lip, but no true facial droop as the angle of the mouth elevates. Brain MRI as well as head and neck MRA were obtained to evaluate for CVA, and all of these studies showed no acute abnormalities, making CVA unlikely. Lack of speech changes, hemiplegia, or hemianesthesia, also make CVA unlikely. History and physical exam are most consistent with localized lip trauma from intubation resulting in lip swelling and L lower lip droop. Cranial nerve V palsy (buccal vs mandibular branch) was also considered, but this is less likely given no involvement of the forehead along with the local lip trauma. Considered obtaining Lyme titer for further workup, but this is not indicated given the low likelihood of [place] palsy. Cervical spinal stenosis s/p C3/C4 discectomy and fusion on 11/21/16 with no radicular symptoms and no arm or leg weakness or numbness. Pt is noted to have leukocytosis of 17.6, which is trending down from yesterday. This is likely due to post-op steroids. He has been afebrile and has no other signs of infection. ECG showed sinus bradycardia with HR of 57, otherwise normal ECG. Troponin has been negative. Cardiology has seen the pt and reported no cardiac interventions needed at this time. PLAN: 1. Lip droop - There is no evidence of stroke at this time, but if the pt develops any new neurological symptoms such as weakness, numbness, slurred speech, or worsening facial droop, he should promptly return to the ED. Continue home ASA. No treatment needed for the lip swelling. 2. Follow up for cervical fusion and discectomy per orthopedics recommendations. 3. Continue home medications for HTN, hyperlipidemia, and COPD. 4. Discussed smoking cessation, and the pt says he is considering trying to stop.
--- NOTE | 2016-11-23 09:27 | Neurology Consultation ---
Neurology Consultation Date of Consultation: Nov 23, 2016. Attending Physician: Dom Rutledge D.O. Primary Care Physician: Alex La M.D. ([place]) Reason for Consultation: Patient is a 71-year-old, who was asked to see the request of Dr. Iniguez, for neurologic evaluation regarding facial droop question stroke. History of Present Illness Source: patient, caregiver, hospital records Patient has a history of chronic cervical spine pain. 7 years ago he underwent discectomy and fusion C4-C7 by Dr. Rutledge. He has been having continued neck pain and was admitted on November 20 because of severe cervical spinal stenosis at C3-4 with cord impingement. He was not having any pain, weakness, or numbness in the upper extremities and no balance issues, lower extremity problems, or incontinence of urine prior to surgery. On November 21 he underwent an anterior approach discectomy and foraminotomy with fusion and cage at C3-4. Immediately postoperatively there was a concern that there was a left facial droop. His noted that his left lower lip was sagging down. Yesterday, November 22 he was going to be discharged but again this facial droop was noted with the left lower lip. His felt that although was a little better than the he was still present on the . An MRI of the brain was obtained and showed no evidence of acute stroke. There are minimal ALT small vessel ischemic changes. MR angiography of the head and MR angiography of the neck were unremarkable. CBC and chem profile were largely unremarkable as well. This morning, the patient has no complaint of numbness or pain or soreness around his lips or tongue. His thinks that the sagging left lower lip is slightly better than before. He denies vision changes, headaches, speech or mentation problems, balance issues, new pain, weakness, or numbness in the limbs, or incontinence. Past Medical/Surgical History Hypertension Dyslipidemia Asthma COPD History of prostate cancer with prostatectomy roughly 10 years ago. History of cervical spondylosis and spinal stenosis post surgery 7 years ago and recent surgery 2 days ago. History of right tibial fracture in 2008 from falling on ice requiring surgery. Family History Mother, age 62 of lung cancer. She was a smoker. Father age 72 with heart condition. Social History Patient smokes one pack or more of cigarettes per day since age 14. He does not consume alcohol. 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 Smoking Status: Current every day smoker Smokeless Tobacco Use: No Alcohol Use: none Drug Use: none Marital Status: Housing Status: lives with family Occupation Status: employed ( truckdriver) Allergies Coded Allergies: No Known Allergies (Verified , 11/21/16) Current Inpatient Medications Current Inpatient Medications Medications (Trade) Dose Ordered Sig/Octaviano Route Start Time Stop Time Status Last Admin Dose Admin Racepinephrine 0.5 ml 0.5 ml ONE PRN INH 11/21/16 08:45 Acetaminophen (Ofirmev Iv) 100 ml @ 400 mls/hr Q8H PRN IV 11/21/16 08:45 12/21/16 08:44 Hydromorphone HCl (Dilaudid Inj) 0.5mg IV for moder... Q3H PRN IV 11/21/16 08:45 12/05/16 08:44 Magnesium Hydroxide (Milk Of Magnesia Susp) 30 ml DAILY PRN PO 11/21/16 08:45 12/21/16 08:44 Ondansetron HCl (Zofran Inj) 4 mg Q6 PRN IV 11/21/16 08:45 12/21/16 08:44 Scopolamine (Transderm-Scop Patch) 1.5 mg Q3D TD 11/21/16 17:00 12/21/16 16:59 11/21/16 17:00 1.5 MG Lorazepam 0.5 mg 0.5 mg Q8H PRN PO 11/21/16 08:45 12/21/16 08:44 Lorazepam/Syringe (Ativan Inj/ Syringe) 1 ml @ 1 mls/min Q8H PRN IV 11/21/16 08:45 12/21/16 08:44 Diphenhydramine HCl (Benadryl Inj) 25 mg Q6H PRN IV 11/21/16 08:45 12/21/16 08:44 Pneumococcal Polysaccharide Vaccine 1 ea PRN PRN N/A 11/21/16 08:45 12/21/16 08:44 Influenza Virus Vacc Triv Types A&B 1 ea PRN PRN N/A 11/21/16 08:45 12/21/16 08:44 Oxycodone HCl (Roxicodone Immediate Rel Tab) 5mg for pain scale 4-6 1... Q4H PRN PO 11/21/16 08:45 12/05/16 08:44 11/21/16 23:42 10 MG Polyethylene (Miralax Powder Packet) 17 gm DAILY PO 11/23/16 09:00 12/23/16 08:59 Bisacodyl (Dulcolax Tab) 5 mg DAILY PRN PO 11/23/16 06:00 12/23/16 05:59 Bisacodyl 10 mg 10 mg DAILY PRN CA 11/23/16 06:00 12/23/16 05:59 Dexamethasone Sodium Phosphate/ Syringe (Decadron Inj/ Syringe) 2 ml @ 1 mls/min ONE PRN IV 11/21/16 08:45 Naloxone HCl (Narcan Inj) 0.1 mg Q5M PRN IV 11/21/16 08:45 12/21/16 08:44 Miscellaneous (Remove Transderm-Scop Patch) 1 ea Q3D N/A 11/24/16 16:59 12/24/16 16:58 Miscellaneous Information (Check Scopolamine Patch Placement) 1 ea QS N/A 11/22/16 00:00 12/22/16 00:00 11/23/16 08:00 1 EA Salmeterol Xinafoate/ Fluticasone (Advair Diskus 250/50 Inh) 1 puff BID PRN INH 11/21/16 08:45 12/21/16 08:44 Nitroglycerin (Nitrostat Tab) 0.4 mg PRN PRN UT 11/21/16 08:45 12/21/16 08:44 Rosuvastatin Calcium (Crestor Tab) 20 mg QAM PO 11/21/16 09:00 12/21/16 08:59 11/22/16 08:32 20 MG Docusate Sodium (coLACE CAP) 100 mg BID PO 11/21/16 21:00 12/21/16 20:59 11/22/16 20:58 100 MG Metoprolol Succinate (Toprol Xl Tab) 25 mg QAM PO 11/22/16 09:00 12/22/16 08:59 11/22/16 08:33 25 MG Nicotine (Nicoderm Cq 21MG Patch) 1 patch QAM TD 11/23/16 09:00 12/23/16 08:59 Miscellaneous (Remove Nicoderm Patch) 1 ea HS N/A 11/22/16 21:00 12/22/16 20:59 Miscellaneous Information (Pharmacist Discharge Med Rec Consult) 1 ea UD PRN N/A 11/22/16 15:00 12/22/16 14:59 Aspirin (Ecotrin Tab) 81 mg QAM PO 11/23/16 09:00 12/23/16 08:59 Gadobutrol (Gadavist) 8 mmol UD PRN IV 11/23/16 02:15 11/27/16 02:14 Review of Systems Constitutional: No fatigue, No weakness Eyes: No diplopia, No worsening of vision ENT: No hearing loss, No tinnitus, No trouble swallowing Respiratory: No cough, No shortness of breath Cardiovascular: No chest pain, No palpitations Abdomen: No nausea, No pain Musculoskeletal: + joint pain, No muscle pain Genitourinary - Male: No dysuria, No urinary incontinence Neurologic: No balance problems, No memory loss, No numbness/tingling, No vertigo, No weakness Psychiatric: No anxiety, No depression symptoms Endocrine: No fatigue Hematologic / Lymphatic: No abnormal bleeding/bruising Integumentary: No rash Allergic / Immunologic: No hives Physical Exam Vital Signs (Past 24 Hrs): Date Time Temp Pulse Resp B/P Pulse Ox O2 Delivery O2 Flow Rate FiO2 11/23/16 08:01 36.8 68 18 117/68 96 11/23/16 07:25 56 14 94 Room Air 11/23/16 04:24 36.8 68 18 116/62 96 Room Air 3.0 11/23/16 04:00 Room Air 11/23/16 04:00 36.8 68 18 116/62 96 Room Air 11/23/16 03:13 54 14 92 Room Air 11/23/16 00:00 Room Air 11/22/16 23:10 53 14 94 Room Air 11/22/16 21:06 92 Room Air 11/22/16 21:00 51 16 93 Room Air 11/22/16 19:35 36.5 66 18 109/56 92 Room Air 11/22/16 19:18 60 14 93 Room Air 11/22/16 19:00 54 16 95 Room Air 11/22/16 17:00 55 18 92 Room Air 11/22/16 17:00 58 18 113/61 95 Room Air 11/22/16 15:24 36.7 62 18 123/63 93 Room Air 11/22/16 13:14 37.1 66 14 92 Room Air 11/22/16 12:30 Room Air 11/22/16 12:30 37.1 66 14 129/67 92 Room Air 11/22/16 11:29 54 14 92 Room Air 11/22/16 11:00 95 Room Air 11/22/16 10:30 36.8 67 16 113/64 95 Nasal Cannula 3.0 Humidified Oxygen Patient is right-handed. The patient is awake and alert. Speech is normal without aphasia or dysarthria. Mentation and thought processes are intact with orientation and normal fund of knowledge. Mood and affect are normal and appropriate. Appearance and grooming are normal. The discs are sharp with positive venous pulsations. There are no exudates, hemorrhages, or blood vessel changes seen. Pupils are 4mm bilaterally and reactive to light. Extraocular eye muscles are intact without nystagmus. Visual acuity and visual major seem normal grossly to confrontation. There are no deficits to sensation of the face bilaterally. Corneal reflexes are positive bilaterally. Facial strength is normal bilaterally and diffusely. He has a slightly swollen, slightly "purplish" left lower lip which sag sign. He can bring it up to her midline in the corners of his mouth move well with voluntary smile and there is no actual facial nerve weakness. He has no numbness or soreness around the face or lips. He has no other facial weakness or asymmetry. Hearing seems intact grossly to voice and finger rub. Palate moves well without asymmetry. There is normal sternocleidomastoid and trapezius strength bilaterally. Tongue is midline with good strength bilaterally. Neck is with full range of motion without discomfort. There are no cervical bruits. There are no cranial or ocular bruits. Heart is without murmur. Cervical, thoracic, and lumbar spine are nontender to palpation. The patient can tandem walk without difficulty. With outstretched arms there is no drift. There are no resting, postural, or action tremors. There is no ataxia with [id number] testing. There is good facility in the hands. There are no abnormal involuntary movements noted. Motor strength is 5/5 diffusely in the arms bilaterally including deltoids, biceps, brachioradialis, wrist flexors and extensors, undercollar maker, and intrinsic hand muscles. Motor strength is 5/5 diffusely in the legs bilaterally including hip flexors, quadriceps, hamstring, gastrocnemius, tibialis anterior, tibialis posterior, and peroneii muscles bilaterally. Toe extensors are normal and there is good bulk in the extensor digitorum brevis muscle bilaterally. The limbs have good tone without rigidity or spasticity, and there is no atrophy noted. Muscle bulk is normal, there is no tenderness, no myotonia noted to percussion, and no fasciculations seen. Sensory examination is intact to pin and touch throughout all four limbs. Reflexes are 1/4 in the biceps, triceps, brachioradialis, quadriceps, and Achilles tendons bilaterally. Toes are downgoing with plantar stimulation bilaterally. Peripheral pulses are present and of normal quality distally in all four limbs. There is no peripheral edema noted. Laboratory Results Past 24 Hours: 11/23/16 04:40 Red Blood Count 4.21, Mean Corpuscular Volume 90.5, Mean Corpuscular Hemoglobin 30.9, Mean Corpuscular Hemoglobin Concent 34.1, Mean Platelet Volume 10.2, Neutrophils (%) (Auto) 80.8, Lymphocytes (%) (Auto) 10.9, Monocytes (%) (Auto) 7.9, Eosinophils (%) (Auto) 0.0, Basophils (%) (Auto) 0.1, Neutrophils # (Auto) 14.24, Lymphocytes # (Auto) 1.91, Monocytes # (Auto) 1.39, Eosinophils # (Auto) 0.00, Basophils # (Auto) 0.01 11/23/16 04:40 Test 11/22/16 15:04 11/22/16 17:15 11/23/16 04:40 Red Blood Cell Morphology Unremarkable Prothrombin Time 10.9 SECONDS (9.0-12.0) Prothromb Time International Ratio 1.0 (0.9-1.1) Activated Partial Thromboplast Time 26.3 SECONDS (21.0-31.0) Partial Thromboplastin Ratio 1.0 Estimated Average Glucose 128 mg/dl Hemoglobin A1c 6.1 % (4.5-5.6) Magnesium Level 2.2 mg/dl (1.8-2.4) White Blood Count 17.60 K/uL (4.8-10.8) Red Blood Count 4.21 M/uL (4.7-6.1) Hemoglobin 13.0 g/dL (14.0-18.0) Hematocrit 38.1 % (42-52) Mean Corpuscular Volume 90.5 fL (80-100) Mean Corpuscular Hemoglobin 30.9 pg (25-34) Mean Corpuscular Hemoglobin Concent 34.1 g/dl (32-36) Platelet Count 190 K/uL (130-400) Mean Platelet Volume 10.2 fL (7.4-10.4) Neutrophils (%) (Auto) 80.8 % Lymphocytes (%) (Auto) 10.9 % Monocytes (%) (Auto) 7.9 % Eosinophils (%) (Auto) 0.0 % Basophils (%) (Auto) 0.1 % Neutrophils # (Auto) 14.24 K/uL (1.4-6.5) Lymphocytes # (Auto) 1.91 K/uL (1.2-3.4) Monocytes # (Auto) 1.39 K/uL (0.11-0.59) Eosinophils # (Auto) 0.00 K/uL (0-0.5) Basophils # (Auto) 0.01 K/uL (0-0.2) RDW Standard Deviation 45.9 fL (36.4-46.3) RDW Coefficient of Variation 14.0 % (11.5-14.5) Immature Granulocyte % (Auto) 0.3 % Immature Granulocyte # (Auto) 0.05 K/uL (0.00-0.02) Nucleated RBC Absolute Count (auto) 0.02 K/uL (0-0) Nucleated Red Blood Cells % 0.1 % Anion Gap 6.0 mmol/L (3-11) Est Creatinine Clear Calc Drug Dose 72.0 ml/min Estimated GFR () 96.1 Estimated GFR (Non- 82.9 BUN/Creatinine Ratio 20.8 (10-20) Calcium Level 8.5 mg/dl (8.5-10.1) Total Creatine Kinase 217 U/L (39-308) Creatine Kinase MB 3.1 ng/ml (0.5-3.6) Creatine Kinase MB Ratio 1.4 (0-3.0) Troponin I < 0.015 ng/ml (0-0.045) Triglycerides Level 109 mg/dl (0-150) Cholesterol Level 129 mg/dl (0-200) HDL Cholesterol 53 mg/dl LDL Cholesterol, Calculated 54 mg/dl VLDL Cholesterol, Calculated 22 mg/dl Cholesterol/HDL Ratio 2.4 Imaging MRI OF THE BRAIN COMBO CLINICAL HISTORY: Right facial droop. COMPARISON STUDY: No priors. TECHNIQUE: MRI of the brain was performed utilizing various T1 and T2-weighted sequences in the axial, sagittal, and coronal planes. Contrast-enhanced sequences were acquired following the administration of 8 cc of Gadavist. The examination is modestly degraded by motion artifact. FINDINGS: Brain parenchyma: There are age-related involutional changes noting minimal patchy subcortical and periventricular microangiopathic disease. There is no hemorrhage or mass effect. There is no restricted diffusion to suggest acute ischemia. No enhancing mass lesion is identified on the postcontrast images. Heath-white matter differentiation is preserved. No extra-axial fluid collection is seen. The cerebellar tonsils are normal in configuration. Ventricles, sulci, and cisterns: Prominent secondary to involutional change. Pituitary and sella: Unremarkable. Intracranial vasculature: Normal flow voids are maintained at the skull base. Orbits: The bony orbits are grossly intact. Orbital contents are normal in appearance. Sinuses and mastoids: Trace mucosal thickening is seen in the maxillary antra. The remaining paranasal sinuses and the mastoid air cells are clear. Calvarium: Unremarkable. Cervical cord: Partially visualized cervical spinal cord is normal in morphology and signal intensity. IMPRESSION: No acute intracranial abnormality. Electronically signed by: Yared Juares M.D. 11/23/2016 7:21 AM Impression 1. Left facial droop. This is actually a sagging of the left lower lip it looks a little swollen and discolored to me although it is not tender and on. The rest of his neuro exam shows no cranial nerve deficit and I don't think there is any actual facial nerve palsy or stroke. This looks like direct trauma to the lower lip on the left. MRI of the brain was unremarkable with no evidence of stroke. MR angiography of the head and neck were unremarkable with no significant stenoses. Despite the fact that he did not have a stroke, he does have increased risk factor for stroke, including hypertension and heavy cigarette smoking. 2. Significant cervical spinal stenosis post C3-4 discectomy and fusion November 21 He is doing well neurologically with this and has no focal or other neurologic deficits on examination. Plan 1. I see no need for additional neurologic testing or treatment of this patient at this time. I spoke to Dr. Rutledge, the patient, and his at bedside today regarding his case. Should he have any additional problems I could see him as an outpatient.
--- NOTE | 2016-11-23 09:47 | CARDIOLOGY CONSULTATION ---
DATE OF CONSULTATION: 11/23/2016 TIME: 08:59 a.m. CONSULTING PHYSICIAN: Dr. Iniguez. REASON FOR CONSULTATION: Left facial droop and possible stroke. HISTORY OF PRESENT ILLNESS: Mr. Beyer is a pleasant 71-year-old gentleman with a history significant for coronary artery disease, dyslipidemia, COPD and tobacco abuse. He was admitted on 11/21/2016 for a planned surgical procedure by Dr. Rutledge. He underwent a C3-C4 anterior cervical diskectomy and fusion with placement of a prosthetic spacer, allograft anterior plate and screw fixation. This surgical procedure followed a mechanical fall in July when he fell off of his truck and struck his head. He was found to have severe stenosis and impingement upon the cord at the C3-C4 level with severe bilateral neural foraminal stenosis of C3-C4. He states that the fall was mechanical. There was no syncope, chest pain or shortness of breath involved. He believes that he was on the lower rung of the steps and he was actually higher and when he stepped backwards, he fell to the ground. Immediately following the procedure, apparently a PACU nurse noted that his left lower face had a new droop to it. They notified his and apparently this was a new finding compared to preoperatively. He continues to have such facial droop on the left lower face. He believes it may actually be getting worse. He denies any numbness, pain or weakness in any of his extremities or other areas of his body. He denies any numbness or pain on the left lower face. There is a noticeable left facial droop compared to his baseline. He denies chest pain. He has chronic dyspnea with exertion, which he believes as stable. He denies orthopnea, syncope, near syncope, palpitations, edema, fevers, chills, abdominal pain, nausea, vomiting, or rash. REVIEW OF SYSTEMS: As above and otherwise review of systems are unremarkable. PAST MEDICAL HISTORY: 1. Coronary artery disease, established on 09/17/2007 cardiac catheterization demonstrating a mid RCA 50% stenosis and a dominant vessel. 2. Chronic obstructive pulmonary disease with PFTs on 03/20/2011 demonstrating mild obstructive ventilatory impairment. 3. Dyslipidemia. 4. Tobacco abuse. 5. Spine surgery several years ago and then once again during this hospitalization. HOME MEDICATIONS: Include aspirin 81 mg daily, metoprolol succinate 25 mg daily, Crestor 20 mg daily, Advair Diskus 1 puff twice daily, and Ventolin as needed. INPATIENT MEDICATIONS: Include aspirin 81 mg daily, dexamethasone, metoprolol succinate 25 mg daily, oxycodone, Crestor 20 mg daily, scopolamine patch 1.5 mg every 3 days, and Advair Diskus 1 puff b.i.d. p.r.n. ALLERGIES: No known drug allergies. FAMILY HISTORY: Father diagnosed with CAD in his late 60s. Mother from lung cancer. He has 3 siblings. SOCIAL HISTORY: He smokes cigarettes and has smoked up to 1-2 packs per day since age of 14. No alcohol or drugs. He is . Two grown children. 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 He is alone in the hospital room. PHYSICAL EXAMINATION: VITAL SIGNS: Temperature 36.8 degrees, heart rate 68 beats per minute, respiratory rate 18, blood pressure 117/68 mmHg, and oxygen saturation is 96% on room air. Blood pressure was mildly elevated for a short period of time on 11/21/2016, but otherwise has been well controlled. I's and O's positive 1.2 liters yesterday. Weight is 83.5 kg. GENERAL: No acute distress. He is alert and oriented. HEENT: Anicteric sclerae. NEUROLOGIC: He does have a noticeable left-sided facial droop on the left lower face. He is able to move all 4 extremities. A full neuro exam was not completed. Neurology is following. NECK: No carotid bruits noted. There is a surgical dressing in place. Normal carotid upstrokes bilaterally. No appreciable JVD. CARDIAC EXAM: No ventricular heaves. Regular, normal S1 and S2. No audible murmurs, rubs or gallops. LUNGS: Decreased breath sounds throughout, otherwise clear. ABDOMEN: Soft, nontender, and nondistended. Normoactive bowel sounds. No bruits noted. EXTREMITIES: No cyanosis or edema. 2+ radial pulses bilaterally. 2+ dorsalis pedis pulses bilaterally. No palpable cords. PSYCHIATRIC: Affect appears appropriate. LABORATORY DATA: White blood cell count is 17.6, hemoglobin 13, and platelets 190. Sodium 145, potassium 3.8, BUN 19, creatinine 0.93, and glucose 112. Troponin undetectable x3. LDL 54, HDL 53, and triglycerides 109. INR is 1. Brain MRI report reviewed. No acute intracranial abnormality reported by radiology. Neck MRA report reviewed. No significant stenosis, occlusion or dissection identified within the carotid or vertebral arteries as per radiology. Head MRA report reviewed. No significant stenosis, occlusion, or aneurysm within the [place]. ECG personally reviewed from 11/22/2016 at 15:10 p.m., sinus bradycardia at 57 beats per minute. Otherwise, normal ECG. Most recent ischemic evaluation was a stress echo on 03/19/2016. Report reviewed. Negative for ischemia at 87% MPHR. Negative ECG. No chest pain. Hypertensive response. EF 55%-60%. Normal wall motion and normal systolic function. Mild LVH. Type 1 diastolic dysfunction. No significant valvular abnormalities. Telemetry personally reviewed. No arrhythmias. Sinus with occasional ectopy. ASSESSMENT AND PLAN: 1. Left facial droop: Etiology uncertain. No acute stroke noted by radiology. Neurology consultation is pending. Case has been discussed with Dr. Adame, who plans on seeing the patient later today. There is no identifiable cardiac etiology to explain his symptoms. Likely neurologic. Perhaps, this is a peripheral nerve issue, but would defer to Dr. Adame of neurology. 2. Coronary artery disease: No angina. He has had negative ischemic evaluation within the past year. He had nonobstructive disease noted in 2007 cardiac catheterization. Continue aspirin 81 mg daily, high intensity statin therapy, and low dose beta esmer. 3. Dyslipidemia: Lipids were reviewed. Lipids are excellent. Continue high intensity statin therapy. 4. Tobacco abuse: He stopped smoking. 5. Disposition: The patient's care has been discussed with Dr. Adame of neurology. Dr. Iniguez of hospitalist service will also be contacted this morning to discuss cardiology recommendations. Cardiology will officially sign off at this time. Please call for any further questions or concerns. Thank for allowing me to participate in the care of Mr. Beyer. Sincerely,
--- NOTE | 2016-11-23 10:49 | Progress Note ---
Subjective Date of Service: Nov 23, 2016. Subjective Pt evaluation today including: conversation w/ patient, conversation w/ family (), physical exam, chart review, lab review, review of inpatient medication list Pt seen and examined Left lip droop still noticeable Denies any other facial weakness, numbness, swallowing or speech difficulties Review of Systems Constitutional: No chills, No fever Eyes: No eye pain, No worsening of vision ENT: + sore throat, No hearing loss, No nasal symptoms Respiratory: No cough, No dyspnea on exertion, No shortness of breath, No sputum Cardiac: No chest pain, No orthopnea Abdomen: No constipation, No diarrhea, No nausea, No pain, No vomiting Musculoskeletal: No joint pain, No muscle pain Male : No dysuria, No urinary frequency Objective Vital Signs Date Time Temp Pulse Resp B/P Pulse Ox O2 Delivery O2 Flow Rate FiO2 11/23/16 08:01 36.8 68 18 117/68 96 11/23/16 08:00 36.8 68 18 117/68 96 Room Air 3.0 11/23/16 08:00 Room Air 11/23/16 07:25 56 14 94 Room Air 11/23/16 04:24 36.8 68 18 116/62 96 Room Air 3.0 11/23/16 04:00 Room Air 11/23/16 04:00 36.8 68 18 116/62 96 Room Air 11/23/16 03:13 54 14 92 Room Air 11/23/16 00:00 Room Air 11/22/16 23:10 53 14 94 Room Air 11/22/16 21:06 92 Room Air 11/22/16 21:00 51 16 93 Room Air 11/22/16 19:35 36.5 66 18 109/56 92 Room Air 11/22/16 19:18 60 14 93 Room Air 11/22/16 19:00 54 16 95 Room Air 11/22/16 17:00 55 18 92 Room Air 11/22/16 17:00 58 18 113/61 95 Room Air 11/22/16 15:24 36.7 62 18 123/63 93 Room Air 11/22/16 13:14 37.1 66 14 92 Room Air 11/22/16 12:30 Room Air 11/22/16 12:30 37.1 66 14 129/67 92 Room Air 11/22/16 11:29 54 14 92 Room Air 11/22/16 11:00 95 Room Air Physical Exam General Appearance: WD/WN, no apparent distress Neck: supple, no adenopathy Respiratory/Chest: lungs clear, normal breath sounds Cardiovascular: no edema, no gallop Abdomen: non tender, soft Neurologic/Psychiatric: no motor/sensory deficits, alert, oriented x 3 Laboratory Results Last 24 Hours Test 11/22/16 15:04 11/22/16 17:15 11/22/16 23:28 11/23/16 04:40 White Blood Count 23.53 K/uL 17.60 K/uL Red Blood Count 4.58 M/uL 4.21 M/uL Hemoglobin 14.5 g/dL 13.0 g/dL Hematocrit 42.4 % 38.1 % Mean Corpuscular Volume 92.6 fL 90.5 fL Mean Corpuscular Hemoglobin 31.7 pg 30.9 pg Mean Corpuscular Hemoglobin Concent 34.2 g/dl 34.1 g/dl Platelet Count 210 K/uL 190 K/uL Mean Platelet Volume 11.1 fL 10.2 fL Neutrophils (%) (Auto) 90.3 % 80.8 % Lymphocytes (%) (Auto) 4.9 % 10.9 % Monocytes (%) (Auto) 4.5 % 7.9 % Eosinophils (%) (Auto) 0.0 % 0.0 % Basophils (%) (Auto) 0.0 % 0.1 % Neutrophils # (Auto) 21.22 K/uL 14.24 K/uL Lymphocytes # (Auto) 1.15 K/uL 1.91 K/uL Monocytes # (Auto) 1.07 K/uL 1.39 K/uL Eosinophils # (Auto) 0.00 K/uL 0.00 K/uL Basophils # (Auto) 0.01 K/uL 0.01 K/uL RDW Standard Deviation 47.0 fL 45.9 fL RDW Coefficient of Variation 13.9 % 14.0 % Immature Granulocyte % (Auto) 0.3 % 0.3 % Immature Granulocyte # (Auto) 0.08 K/uL 0.05 K/uL Red Blood Cell Morphology Unremarkable Prothrombin Time 10.9 SECONDS Prothromb Time International Ratio 1.0 Activated Partial Thromboplast Time 26.3 SECONDS Partial Thromboplastin Ratio 1.0 Estimated Average Glucose 128 mg/dl Hemoglobin A1c 6.1 % Troponin I < 0.015 ng/ml < 0.015 ng/ml < 0.015 ng/ml Sodium Level 141 mmol/L 145 mmol/L Potassium Level 4.3 mmol/L 3.8 mmol/L Chloride Level 107 mmol/L 109 mmol/L Carbon Dioxide Level 28 mmol/L 30 mmol/L Anion Gap 6.0 mmol/L 6.0 mmol/L Blood Urea Nitrogen 23 mg/dl 19 mg/dl Creatinine 0.82 mg/dl 0.93 mg/dl Est Creatinine Clear Calc Drug Dose 81.7 ml/min 72.0 ml/min Estimated GFR () 103.8 96.1 Estimated GFR (Non- 89.6 82.9 BUN/Creatinine Ratio 27.4 20.8 Random Glucose 124 mg/dl 112 mg/dl Calcium Level 8.8 mg/dl 8.5 mg/dl Magnesium Level 2.2 mg/dl Total Creatine Kinase 249 U/L 217 U/L Creatine Kinase MB 3.4 ng/ml 3.1 ng/ml Creatine Kinase MB Ratio 1.4 1.4 Nucleated RBC Absolute Count (auto) 0.02 K/uL Nucleated Red Blood Cells % 0.1 % Triglycerides Level 109 mg/dl Cholesterol Level 129 mg/dl HDL Cholesterol 53 mg/dl LDL Cholesterol, Calculated 54 mg/dl VLDL Cholesterol, Calculated 22 mg/dl Cholesterol/HDL Ratio 2.4 Assessment and Plan This pt is a 71 yo male with a h/o hyperlipidemia, HTN, longtime smoker, COPD, and cervical spine stenosis, admitted for C3-4 anterior discectomy and fusion, with seemingly new onset left sided facial droop postoperatively. 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 He does have risk factors for CVA of smoking, hyperlipidemia, and hypertension. Case was discussed with neurology and cardiology on the phone. ECG is sinus bradycardia. Laboratory values today are normal including negative troponin, with the exception of a leukocytosis of 23,000 which is likely due to preoperative dexamethasone. -Transferred to telemetry for cardiac arrhythmia monitoring -Cardiac biomarkers x 3 sets normal -Consult to neurology no discernible stroke, likely from injury/postop -PT/OT/speech therapy evaluations -MRI of the brain as well as MRA of the head and neck unremarkable -Restart his home aspirin 81 mg which I did discuss with Dr. Rutledge Hyperlipidemia, hypertension-stable at this time -Continue home metoprolol and Crestor -Continue aspirin 81 mg daily COPD-stable -Continue home Advair Current smoker-encouraged cessation of smoking -Nicotine patch as needed Cervical spine stenosis status post ACDF [id number] -Postoperative management as per primary orthopedic surgeon team DVT prophylaxis-SCDs Disposition to home after workup for CVA was completed and he is medically stable
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
== END 2016-11-23 11:35 | disposition home or self-care (01) | DRG 473 ==
LOC: ENRESERVDT → ENRESERVTM → C.ACU 05:53 → C.3E 07:14 → C.2E 11-22 16:20
PROVIDERS: ADMIT Orthopaedic Surgery Orthopaedic Surgery of the Spine; ATTEND Orthopaedic Surgery Orthopaedic Surgery of the Spine
PROC: 0RT30ZZ Resection of Cervical Vertebral Disc, Open Approach (ICD-10-PCS; principal; 2016-11-21 07:45)
PROC: 0RG10A0 Fusion of Cervical Vertebral Joint with Interbody Fusion Device, Anterior Approach, Anterior Column, Open Approach (ICD-10-PCS; principal; 2016-11-21 07:45)
DX: M47.12 Other spondylosis with myelopathy, cervical region (principal); E78.00 Pure hypercholesterolemia, unspecified; J44.9 Chronic obstructive pulmonary disease, unspecified; I10 Essential (primary) hypertension; Z85.46 Personal history of malignant neoplasm of prostate; R00.1 Bradycardia, unspecified; I25.10 Atherosclerotic heart disease of native coronary artery without angina pectoris; F17.200 Nicotine dependence, unspecified, uncomplicated; S09.93XA Unspecified injury of face, initial encounter; Y92.239 Unspecified place in hospital as the place of occurrence of the external cause; X58.XXXA Exposure to other specified factors, initial encounter

== ENCOUNTER → 2017-03-12 | Outpatient (CLI) | payer OTHER ==
[~2017-03-12] MED LIST changes: +ADVIN25/60 INH; +NTRGSL/4 UT; +RXC5 PO
[2017-03-12 13:37] LABS: ALT/SGPT 28 U/L (12-78); AST/SGOT 17 U/L (15-37); BLOOD UREA NITROGEN 11 mg/dl (7-18); BUN/CREATININE RATIO 13.5 (10-20); CARBON DIOXIDE 32 mmol/L (21-32); CHLORIDE 110 mmol/L (98-107); CHOLESTEROL 137 mg/dl (0-200); CREATININE 0.83 mg/dl (0.60-1.40); GLUCOSE 96 mg/dl (70-99); POTASSIUM 4.2 mmol/L (3.5-5.1); SODIUM 144 mmol/L (136-145); TRIGLYCERIDES 114 mg/dl (0-150); VERY LOW DENSITY LIPOPROT CALC 23 mg/dl
[2017-03-12 13:40] LABS: ALB/GLOB RATIO 1.2 (0.9-2); ALKALINE PHOSPHATASE 113 U/L (45-117); CHOLESTEROL/HDL RATIO 2.6; HDL CHOLESTEROL 52 mg/dl; LDL CHOLESTEROL CALCULATED 62 mg/dl
[2017-03-12 13:56] LABS: HEMATOCRIT 45.4 % (42-52); MEAN CELL VOLUME 93.4 fL (80-100); MEAN CORPUSCULAR HEMOGLOBIN 31.9 pg (25-34); MEAN CORPUSCULAR HGB CONC 34.1 g/dl (32-36); MEAN PLATELET VOLUME 11.4 fL (7.4-10.4); PLATELET COUNT 229 K/uL (130-400); RED BLOOD COUNT 4.86 M/uL (4.7-6.1)
== END | disposition home or self-care (01) ==
LOC: C.LABMFLN 08:05
PROVIDERS: ATTEND Internal Medicine Cardiovascular Disease
DX: R06.02 Shortness of breath (principal); E78.5 Hyperlipidemia, unspecified; I25.10 Atherosclerotic heart disease of native coronary artery without angina pectoris

== ENCOUNTER → 2017-12-25 | Day surgery (SDC) | payer OTHER ==
[2017-12-12 13:48] VITALS: Ht 162.6 cm; Wt 76.8 kg
[~2017-12-25] VITALS: Ht 162.6 cm; Wt 76.8 kg
[~2017-12-25] MED LIST changes: +500ML BSS 0.3ML EPI 1:1000PF IRRIG ONE; +ACETAMINOPHEN 325 MG TAB PO PRN; +AMVISC PLUS 0.8ML SYRINGE INT OCU ONE; -ASPI325T45 PO; +ATROPINE SULFATE 0.1 MG/ML 5ML SYR IV PRN; +BROM0.07; +BSS FLUSH ONE; +CYCLOPENTOLATE HCL 1% OP SOLN PER DROP CHARGE OPL ONE; +ENDOCOAT 0.85ML SYRINGE INT OCU ONE; +EpHEDrine SULFATE INJ 50 MG/ML AMP IV PRN; +EpINEphrine INJ 1MG/ML AMP 1 MG/ML AMP ONE; +LACTATED RINGER'S 1000ML 500 ML IV SCH; +LIDOCAINE 4% OP SOLN DROP CHARGE ONE; +LIDOCAINE 4% OP SOLN DROP CHARGE OPL SCH; +LIDOCAINE HCL 1% MPF 2 ML VIAL ONE; +MIDAZOLAM HCL 1 MG/ML 2ML VIAL ONE; +MIX: 4ML BSS 1ML EPI 1:1000 PF TOP ONE; +MOXIFLOXACIN OPH SOLN PER DROP CHARGE ONE; +MOXIFLOXACIN OPH SOLN PER DROP CHARGE OPL ONE; +MOXIFLOXACIN OPH SOLN PER DROP CHARGE OPL SCH; +OFLO0.3S OP; +PHENYLEPHRINE HCL 2.5% OP SOLN PER DROP CHARGE OPL ONE; +POVIDONE-IODINE OP SOLN 30 ML BTL ONE; +PRED1SUS3 OPL; +PROPARACAINE 0.5% OP SOLN PER DROP CHARGE OPL SCH; -ROSU20TA22 PO; +ROSU20TA33 PO; -RXC5 PO; +TOBRAMYCIN/DEXAMETHASONE OPH OINT PER APPLN CHARGE ONE; +TROPICAMIDE 1% OP SOLN PER DROP CHARGE OPL ONE
[2017-12-25] MEDS: PHENYLEPHRINE HCL 2.5% OP SOLN PER DROP CHARGE OPL SCH ×2 (07:02→07:08)
[2017-12-25] MEDS: TROPICAMIDE 1% OP SOLN PER DROP CHARGE OPL SCH ×2 (07:03→07:09)
[2017-12-25] MEDS: CYCLOPENTOLATE HCL 1% OP SOLN PER DROP CHARGE OPL SCH ×2 (07:04→07:10)
[2017-12-25] MEDS: MOXIFLOXACIN OPH SOLN PER DROP CHARGE OPL SCH ×2 (07:05→07:11)
--- NOTE | 2017-12-25 07:57 | [facility] Post Operative Brief Note ---
Immediate Operative Summary Operative Date December 25, 2017. 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
--- NOTE | 2017-12-25 07:59 | [facility] Operative Report ---
Operative Report Date of Service December 25, 2017. Operative Report DATE OF OPERATION: 12/25/17 PREOPERATIVE DIAGNOSIS: Senile nuclear cataract and astigmatism, left eye POSTOPERATIVE DIAGNOSIS: Senile nuclear cataract and astigmatism, left eye PROCEDURE PERFORMED: Phacoemulsification with toric intraocular lens implantation, left eye SURGEON: Dr. Tiago Horowitz ANESTHESIA: Topical with 1% intracameral lidocaine and monitored anesthesia care COMPLICATIONS: None DESCRIPTION OF PROCEDURE: After positively identifying the patient both verbally and by wristband in the preoperative area, the left eye was marked as the operative eye. Using a Robomarker, the 180 degree axis was marked after placing a drop of proparacaine. The patient was then brought back to the operating room by the anesthesia and nursing staff where they were given a drop of tetracaine and betadine into the operative eye. They were then sterilely prepped and draped in the standard fashion typical for ophthalmic surgery. Steri-strips were placed along the upper eyelids to keep the lashes back, and a lid speculum was placed into the operative eye. At this point, a documented time out was performed with members of the ophthalmology, nursing, and anesthesia staffs all agreeing upon the correct patient, correct location for surgery, correct procedure, and correct type and power of intraocular lens to be implanted. The microscope was then swung into position. Then, a paracentesis wound was made using a sideport blade. Then, in sequence, 1% preservative-free lidocaine followed by Endocoat viscoelastic was injected into the anterior chamber. Next , the main incision was made with a keratome blade in triplanar fashion. A sharp cystotome was introduced into the eye and used to create a tear in the anterior capsule, which was directed into a continuous curvilinear capsulorrhexis using Utrata forceps. Hydrodissection was then performed with BSS on a flat-tip cannula. Next, the phacoemulsification handpiece was introduced into the eye and used to remove the nucleus in a [id number] fashion. This was done without complication and then the irrigation-aspiration handpiece was introduced into the eye and used to remove all remaining cortical and epinuclear material. Amvisc was then injected into the anterior chamber as well as into the capsular bag and using the lens injector system, a [id number] 23.0 D lens, serial number [id number], and expiration date 02/2021 was injected into the capsular bag and rotated into the correct position to correctly line up with the toric marking. Next, the irrigation-aspiration handpiece was used to remove all remaining Amvisc. BSS was used to hydrate the main wound, and then BSS was injected into the paracentesis site to reach physiologic pressure and then the main wound was checked and found to be watertight. The patient was given drops of Vigamox and tobradex ointment into the operative eye, and then the surrounding area was cleaned and dried. A clear plastic shield was placed over the eye and the patient was then sat up and taken from the operating room by the anesthesia staff having tolerated the procedure well and suffering no complications. DISPOSITION: The patient was returned to the recovery room in stable condition. I attest to the content of the Intraoperative Record and any orders documented therein. Any exceptions are noted below.
--- NOTE | 2017-12-25 08:00 | Discharge Instructions-SurgCtr ---
Discharge Instructions Date of Service December 25, 2017. Visit Reason for Visit: Cataract Left Eye Discharge Discharge Diagnosis / Problem: left cataract Discharge Goals Goal(s): Decrease discomfort, Improve function Activity Recommendations Activity Limitations: as noted below Anesthesia . Post Anesthesia Instructions: If you have had General Anesthesia or IV Sedation: * Do not drive today. * Resume driving when surgeon permits. * Do not make important decisions or sign legal documents today. * Call surgeon for: 1. Temperature elevations greater than 101 degrees F. 2. Uncontrollable pain. 3. Excessive bleeding. 4. Persistent nausea and vomiting. 5. Medication intolerance (nausea, vomiting or rash). * For nausea and vomiting use only clear liquids such as: tea, soda, bouillon until nausea subsides, then gradually increase diet as tolerated. * If you have any concerns or questions, call your surgeon's office. If physician is unavailable and it is an emergency, call 911 or go to the nearest emergency room. . Instructions / Follow-Up Instructions / Follow-Up ACTIVITY RECOMMENDATIONS: * Light activities. * You may walk outside, read, watch television. * You may notice redness on the white part of the eye and some blurry vision - this is normal. MEDICATIONS: Resume previous medications unless instructed otherwise by your surgeon. Start all eye drops at 10 am today: * Eye drops (today): Prednisone - one drop in operative eye every 2 hours while awake Ofloxacin - one drop in operative eye every 2 hours while awake Bromfenac - one drop in operative eye daily SPECIAL CARE INSTRUCTIONS: * Tape plastic shield over eye to sleep at night. Call your doctor at with any concerns or problems. FOLLOW UP VISIT: Follow-up with Dr Horowitz at [facility] as scheduled. Diet Recommendations Home Diet: no limitations Procedures Procedures Performed: Left Eye Cataract Phacoemulsification With Intraocular Lens Implant Pending Studies Studies pending at discharge: no Medical Emergencies . Who to Call and When: Medical Emergencies: If at any time you feel your situation is an emergency, please call 911 immediately. . Non-Emergent Contact Non-Emergency issues call your: Surgeon . . "Provider Documentation" section prepared by Tiago Horowitz. .
[2017-12-25 08:01] VITALS: TEMP 36.6
[2017-12-25 08:22] VITALS: BP 116/63; PULSE 81; O2SAT 96
--- NOTE | 2017-12-25 08:43 | Anesthesia Progress Nt - [facility] ---
Anesthesia Post Op Note Date & Time December 25, 2017 at 08:42 Vital Signs Pain Intensity: 0 Vital Signs Past 12 Hours Date Time Temp Pulse Resp B/P (MAP) Pulse Ox O2 Delivery O2 Flow Rate FiO2 12/25/17 08:22 81 16 116/63 (80) 96 Room Air 12/25/17 08:01 36.6 56 14 102/65 (77) 97 Room Air 12/25/17 06:49 36.3 58 24 123/74 (90) 94 Room Air Notes Mental Status: alert / awake / arousable, participated in evaluation Pt Amnestic to Procedure: Yes Nausea / Vomiting: adequately controlled Pain: adequately controlled Airway Patency, RR, SpO2: stable & adequate BP & HR: stable & adequate Hydration State: stable & adequate Anesthetic Complications: no major complications apparent
== END | disposition home or self-care (01) ==
LOC: X.SURG 06:36
PROVIDERS: ATTEND Ophthalmology
DX: H25.12 Age-related nuclear cataract, left eye (principal); H52.202 Unspecified astigmatism, left eye; J44.9 Chronic obstructive pulmonary disease, unspecified; I10 Essential (primary) hypertension; E78.00 Pure hypercholesterolemia, unspecified; F17.210 Nicotine dependence, cigarettes, uncomplicated; Z85.46 Personal history of malignant neoplasm of prostate; Z90.79 Acquired absence of other genital organ(s)

== ENCOUNTER → 2018-01-03 | Outpatient (CLI) | payer OTHER ==
[~2018-01-03] MED LIST changes: -500ML BSS 0.3ML EPI 1:1000PF IRRIG ONE; -ACETAMINOPHEN 325 MG TAB PO PRN; -AMVISC PLUS 0.8ML SYRINGE INT OCU ONE; -ATROPINE SULFATE 0.1 MG/ML 5ML SYR IV PRN; -BSS FLUSH ONE; -CYCLOPENTOLATE HCL 1% OP SOLN PER DROP CHARGE OPL ONE; -ENDOCOAT 0.85ML SYRINGE INT OCU ONE; -EpHEDrine SULFATE INJ 50 MG/ML AMP IV PRN; -EpINEphrine INJ 1MG/ML AMP 1 MG/ML AMP ONE; -LACTATED RINGER'S 1000ML 500 ML IV SCH; -LIDOCAINE 4% OP SOLN DROP CHARGE ONE; -LIDOCAINE 4% OP SOLN DROP CHARGE OPL SCH; -LIDOCAINE HCL 1% MPF 2 ML VIAL ONE; -MIDAZOLAM HCL 1 MG/ML 2ML VIAL ONE; -MIX: 4ML BSS 1ML EPI 1:1000 PF TOP ONE; -MOXIFLOXACIN OPH SOLN PER DROP CHARGE ONE; -MOXIFLOXACIN OPH SOLN PER DROP CHARGE OPL ONE; -MOXIFLOXACIN OPH SOLN PER DROP CHARGE OPL SCH; -PHENYLEPHRINE HCL 2.5% OP SOLN PER DROP CHARGE OPL ONE; -POVIDONE-IODINE OP SOLN 30 ML BTL ONE; -PROPARACAINE 0.5% OP SOLN PER DROP CHARGE OPL SCH; -TOBRAMYCIN/DEXAMETHASONE OPH OINT PER APPLN CHARGE ONE; -TROPICAMIDE 1% OP SOLN PER DROP CHARGE OPL ONE
[2018-01-03 12:26] LABS: HEMATOCRIT 44.6 % (42-52); HEMOGLOBIN 15.2 g/dL (14.0-18.0); MEAN CELL VOLUME 92.1 fL (80-100); MEAN CORPUSCULAR HEMOGLOBIN 31.4 pg (25-34); MEAN CORPUSCULAR HGB CONC 34.1 g/dl (32-36); MEAN PLATELET VOLUME 10.7 fL (7.4-10.4); PLATELET COUNT 212 K/uL (130-400); RED CELL DISTRIBUTION WIDTH SD 47.1 fL (36.4-46.3); WHITE BLOOD COUNT 9.49 K/uL (4.8-10.8)
[2018-01-03 12:57] LABS: ALT/SGPT 31 U/L (12-78); AST/SGOT 23 U/L (15-37); BLOOD UREA NITROGEN 12 mg/dl (7-18); CALCIUM 9.1 mg/dl (8.5-10.1); CARBON DIOXIDE 31 mmol/L (21-32); CHOLESTEROL 138 mg/dl (0-200); CREATININE 0.79 mg/dl (0.60-1.40); GLUCOSE 95 mg/dl (70-99); POTASSIUM 4.4 mmol/L (3.5-5.1); SODIUM 140 mmol/L (136-145)
[2018-01-03 12:59] LABS: LDL CHOLESTEROL CALCULATED 64 mg/dl
== END | disposition home or self-care (01) ==
LOC: C.LABMFLN 08:18
PROVIDERS: ATTEND Internal Medicine Cardiovascular Disease
DX: E78.5 Hyperlipidemia, unspecified (principal); I25.10 Atherosclerotic heart disease of native coronary artery without angina pectoris

== ENCOUNTER → 2018-01-15 | Day surgery (SDC) | payer OTHER ==
[2018-01-06 08:30] VITALS: Ht 162.6 cm; Wt 76.8 kg
[~2018-01-15] VITALS: Ht 162.6 cm; Wt 76.8 kg
[~2018-01-15] MED LIST changes: +500ML BSS 0.3ML EPI 1:1000PF IRRIG ONE; +ACETAMINOPHEN 325 MG TAB PO PRN; +ATROPINE SULFATE 0.1 MG/ML 5ML SYR IV PRN; +BSS FLUSH ONE; +EpHEDrine SULFATE INJ 50 MG/ML AMP IV PRN; +EpINEphrine INJ 1MG/ML AMP 1 MG/ML AMP ONE; +FENTANYL CITRATE INJ 50 MCG/1 ML 2 ML VIAL ONE; +LACTATED RINGER'S 1000ML 500 ML IV SCH; +LIDOCAINE 4% OP SOLN DROP CHARGE ONE; +LIDOCAINE 4% OP SOLN DROP CHARGE OPR SCH; +LIDOCAINE HCL 1% MPF 2 ML VIAL ONE; +MIDAZOLAM HCL 1 MG/ML 2ML VIAL ONE; +MIX: 4ML BSS 1ML EPI 1:1000 PF TOP ONE; +MOXIFLOXACIN OPH SOLN PER DROP CHARGE ONE; +POVIDONE-IODINE OP SOLN 30 ML BTL ONE; +PROPARACAINE 0.5% OP SOLN PER DROP CHARGE OPR SCH; +TOBRAMYCIN/DEXAMETHASONE OPH OINT PER APPLN CHARGE ONE
[2018-01-15] MEDS: PHENYLEPHRINE HCL 10% OP SOLN PER DROP CHARGE OPR SCH ×3 (07:26→07:40)
[2018-01-15] MEDS: TROPICAMIDE 1% OP SOLN PER DROP CHARGE OPR SCH ×3 (07:27→07:41)
[2018-01-15] MEDS: CYCLOPENTOLATE HCL 1% OP SOLN PER DROP CHARGE OPR SCH ×3 (07:32→07:42)
[2018-01-15] MEDS: MOXIFLOXACIN OPH SOLN PER DROP CHARGE OPR SCH ×3 (07:33→07:43)
--- NOTE | 2018-01-15 08:35 | [facility] Post Operative Brief Note ---
Immediate Operative Summary Operative Date January 15, 2018. 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
[2018-01-15 08:36] VITALS: TEMP 36.3
--- NOTE | 2018-01-15 08:37 | [facility] Operative Report ---
Operative Report Date of Service January 15, 2018. Operative Report DATE OF OPERATION: 01/15/18 PREOPERATIVE DIAGNOSIS: Senile nuclear cataract and astigmatism, right eye POSTOPERATIVE DIAGNOSIS: Senile nuclear cataract and astigmatism, right eye PROCEDURE PERFORMED: Phacoemulsification with toric intraocular lens implantation, right eye SURGEON: Dr. Tiago Horowitz ANESTHESIA: Topical with 1% intracameral lidocaine and monitored anesthesia care COMPLICATIONS: None DESCRIPTION OF PROCEDURE: After positively identifying the patient both verbally and by wristband in the preoperative area, the right eye was marked as the operative eye. Using a Robomarker, the 173 degree axis was marked after placing a drop of proparacaine. The patient was then brought back to the operating room by the anesthesia and nursing staff where they were given a drop of tetracaine and betadine into the operative eye. They were then sterilely prepped and draped in the standard fashion typical for ophthalmic surgery. Steri-strips were placed along the upper eyelids to keep the lashes back, and a lid speculum was placed into the operative eye. At this point, a documented time out was performed with members of the ophthalmology, nursing, and anesthesia staffs all agreeing upon the correct patient, correct location for surgery, correct procedure, and correct type and power of intraocular lens to be implanted. The microscope was then swung into position. Then, a paracentesis wound was made using a sideport blade. Then, in sequence, 1% preservative-free lidocaine followed by Endocoat viscoelastic was injected into the anterior chamber. Next , the main incision was made with a keratome blade in triplanar fashion. A sharp cystotome was introduced into the eye and used to create a tear in the anterior capsule, which was directed into a continuous curvilinear capsulorrhexis using Utrata forceps. Hydrodissection was then performed with BSS on a flat-tip cannula. Next, the phacoemulsification handpiece was introduced into the eye and used to remove the nucleus in a [id number] fashion. This was done without complication and then the irrigation-aspiration handpiece was introduced into the eye and used to remove all remaining cortical and epinuclear material. Amvisc was then injected into the anterior chamber as well as into the capsular bag and using the lens injector system, a [id number] 22.5 D lens, serial number [id number], and expiration date 09/2021 was injected into the capsular bag and rotated into the correct position to correctly line up with the toric marking. Next, the irrigation-aspiration handpiece was used to remove all remaining Amvisc. BSS was used to hydrate the main wound, and then BSS was injected into the paracentesis site to reach physiologic pressure and then the main wound was checked and found to be watertight. The patient was given drops of Vigamox and tobradex ointment into the operative eye, and then the surrounding area was cleaned and dried. A clear plastic shield was placed over the eye and the patient was then sat up and taken from the operating room by the anesthesia staff having tolerated the procedure well and suffering no complications. DISPOSITION: The patient was returned to the recovery room in stable condition. I attest to the content of the Intraoperative Record and any orders documented therein. Any exceptions are noted below.
--- NOTE | 2018-01-15 08:38 | Discharge Instructions-SurgCtr ---
Discharge Instructions Date of Service January 15, 2018. Visit Reason for Visit: Right Cataract Discharge Discharge Diagnosis / Problem: right cataract Discharge Goals Goal(s): Decrease discomfort, Improve function Activity Recommendations Activity Limitations: as noted below Anesthesia . Post Anesthesia Instructions: If you have had General Anesthesia or IV Sedation: * Do not drive today. * Resume driving when surgeon permits. * Do not make important decisions or sign legal documents today. * Call surgeon for: 1. Temperature elevations greater than 101 degrees F. 2. Uncontrollable pain. 3. Excessive bleeding. 4. Persistent nausea and vomiting. 5. Medication intolerance (nausea, vomiting or rash). * For nausea and vomiting use only clear liquids such as: tea, soda, bouillon until nausea subsides, then gradually increase diet as tolerated. * If you have any concerns or questions, call your surgeon's office. If physician is unavailable and it is an emergency, call 911 or go to the nearest emergency room. . Instructions / Follow-Up Instructions / Follow-Up ACTIVITY RECOMMENDATIONS: * Light activities. * You may walk outside, read, watch television. * You may notice redness on the white part of the eye and some blurry vision - this is normal. MEDICATIONS: Resume previous medications unless instructed otherwise by your surgeon. Start all eye drops at 10:30 am today: * Eye drops (today): Prednisone - one drop in operative eye every 2 hours while awake Ofloxacin - one drop in operative eye every 2 hours while awake Bromfenac - one drop in operative eye daily SPECIAL CARE INSTRUCTIONS: * Tape plastic shield over eye to sleep at night. Call your doctor at with any concerns or problems. FOLLOW UP VISIT: Follow-up with Dr Horowitz at [place] office as scheduled. Diet Recommendations Home Diet: no limitations Procedures Procedures Performed: Right Cataract Phacoemulsification With Intraocular Lens Implant; Toric Lens Pending Studies Studies pending at discharge: no Medical Emergencies . Who to Call and When: Medical Emergencies: If at any time you feel your situation is an emergency, please call 911 immediately. . Non-Emergent Contact Non-Emergency issues call your: Surgeon . . "Provider Documentation" section prepared by Tiago Horowitz. .
[2018-01-15 08:57] VITALS: BP 122/74; PULSE 55; O2SAT 95
--- NOTE | 2018-01-15 10:09 | Anesthesia Progress Nt - [facility] ---
Anesthesia Post Op Note Date & Time January 15, 2018 at 10:09 Vital Signs Pain Intensity: 0 Vital Signs Past 12 Hours Date Time Temp Pulse Resp B/P (MAP) Pulse Ox O2 Delivery O2 Flow Rate FiO2 01/15/18 08:57 55 16 122/74 (90) 95 Room Air 01/15/18 08:36 36.3 62 16 127/75 (92) 95 Room Air 01/15/18 07:15 36.6 59 18 113/69 (84) 93 Room Air Notes Mental Status: alert / awake / arousable, participated in evaluation Pt Amnestic to Procedure: Yes Nausea / Vomiting: adequately controlled Pain: adequately controlled Airway Patency, RR, SpO2: stable & adequate BP & HR: stable & adequate Hydration State: stable & adequate Anesthetic Complications: no major complications apparent
== END | disposition home or self-care (01) ==
LOC: X.SURG 06:33
PROVIDERS: ATTEND Ophthalmology
DX: H25.11 Age-related nuclear cataract, right eye (principal); J44.9 Chronic obstructive pulmonary disease, unspecified; E78.00 Pure hypercholesterolemia, unspecified; J45.909 Unspecified asthma, uncomplicated; Z90.79 Acquired absence of other genital organ(s); Z79.82 Long term (current) use of aspirin; Z85.46 Personal history of malignant neoplasm of prostate